=== PATIENT | female | born 1940 | race Caucasian/White ===

== ENCOUNTER → 2016-05-30 | Outpatient (REF) | payer MEDICARE, OTHER ==
[2016-05-30 11:38] LABS: MEAN CORPUSCULAR HEMOGLOBIN 31.7 pg (27.0-33.0); MEAN CORPUSCULAR HGB CONC 33.3 g/dl (32.0-36.5); MEAN CORPUSCULAR VOLUME 95.1 fl (80.0-96.0); RED CELL DISTRIBUTION WIDTH 12.6 % (11.5-14.5); WHITE BLOOD COUNT 6.7 K/mm3 (4.0-10.0)
[2016-05-30 11:51] LABS: ALBUMIN 3.4 GM/DL (3.2-5.2); ALBUMIN/GLOBULIN RATIO 1.03 (1.00-1.93); ALKALINE PHOSPHATASE 77 U/L (45-117); ALT/SGPT 30 U/L (12-78); ANION GAP 4 MEQ/L (8-16); AST/SGOT 26 U/L (15-37); BILIRUBIN,TOTAL 0.3 MG/DL (0.2-1.0); BLOOD UREA NITROGEN 13 MG/DL (7-18); CALCIUM LEVEL 9.3 MG/DL (8.8-10.2); CARBON DIOXIDE LEVEL 32 MEQ/L (21-32); CHLORIDE LEVEL 103 MEQ/L (98-107); CHOLESTEROL LEVEL 179 MG/DL (<200); CREATININE FOR GFR 0.89 MG/DL (0.55-1.02); GLOMERULAR FILTRATION RATE > 60.0 (>39); GLUCOSE, FASTING 95 MG/DL (83-110); POTASSIUM SERUM 4.4 MEQ/L (3.5-5.1); SODIUM LEVEL 139 MEQ/L (136-145); TOTAL PROTEIN 6.7 GM/DL (6.4-8.2); TRIGLYCERIDES LEVEL 32 MG/DL (<150)
== END ==
LOC: M LABDRWAD 11:03
PROVIDERS: ATTEND Family Medicine
DX: Z00.00 Encounter for general adult medical examination without abnormal findings (principal)

== ENCOUNTER → 2016-08-22 | Outpatient (CLI) | payer MEDICARE, OTHER | LOC: M ADAMS 09:30 | PROVIDERS: ATTEND Family Medicine | DX: E03.9 Hypothyroidism, unspecified (principal) ==

== ENCOUNTER → 2017-03-13 | Outpatient (CLI) | payer MEDICARE, OTHER | LOC: M ADAMS 11:07 | DX: J45.909 Unspecified asthma, uncomplicated (principal) | CPT/HCPCS: 71046 ==

== ENCOUNTER → 2017-04-29 | Outpatient (REF) | payer MEDICARE, OTHER ==
[2017-04-29 13:26] LABS: HEMATOCRIT 41.6 % (36.0-47.0); HEMOGLOBIN 13.6 g/dl (12.0-16.0); MEAN CORPUSCULAR HGB CONC 32.7 g/dl (32.0-36.5); MEAN CORPUSCULAR VOLUME 94.8 fl (80.0-96.0); PLATELET COUNT, AUTOMATED 291 10^3/uL (150-450); RED BLOOD COUNT 4.39 10^6/uL (4.00-5.40); RED CELL DISTRIBUTION WIDTH 13.2 % (11.5-14.5); WHITE BLOOD COUNT 6.4 10^3/uL (4.0-10.0)
[2017-04-29 14:07] LABS: TOTAL 25(OH) VITAMIN D 63.8 NG/ML (30.0-100.0)
[2017-04-29 14:09] LABS: ALBUMIN 3.8 GM/DL (3.2-5.2); ALBUMIN/GLOBULIN RATIO 1.09 (1.00-1.93); ALKALINE PHOSPHATASE 89 U/L (45-117); ALT/SGPT 28 U/L (12-78); ANION GAP 8 MEQ/L (8-16); AST/SGOT 24 U/L (7-37); BILIRUBIN,TOTAL 0.5 MG/DL (0.2-1.0); BLOOD UREA NITROGEN 15 MG/DL (7-18); CARBON DIOXIDE LEVEL 31 MEQ/L (21-32); CHLORIDE LEVEL 102 MEQ/L (98-107); CHOLESTEROL LEVEL 183 MG/DL (<200); CHOLESTEROL RISK RATIO 2.178 (<5); CREATININE FOR GFR 0.91 MG/DL (0.55-1.30); FREE T4 1.06 NG/DL (0.76-1.46); GLOMERULAR FILTRATION RATE > 60.0 (>39); GLUCOSE, FASTING 75 MG/DL (70-100); HDL CHOLESTEROL 84 MG/DL (>40); LDL CHOLESTEROL 89.4 MG/DL (<100); NON-HDL-C 99 MG/DL; POTASSIUM SERUM 4.8 MEQ/L (3.5-5.1); SODIUM LEVEL 141 MEQ/L (136-145); TOTAL PROTEIN 7.3 GM/DL (6.4-8.2); TRIGLYCERIDES LEVEL 48 MG/DL (<150)
== END ==
LOC: M LABDRWAD 12:27
DX: E03.9 Hypothyroidism, unspecified (principal); E55.9 Vitamin D deficiency, unspecified; R03.0 Elevated blood-pressure reading, without diagnosis of hypertension; Z13.220 Encounter for screening for lipoid disorders; Z13.0 Encounter for screening for diseases of the blood and blood-forming organs and certain disorders involving the immune mechanism
CPT/HCPCS: 84443

== ENCOUNTER → 2018-01-10 | Outpatient (REF) | payer MEDICARE, OTHER ==
[2018-01-10 13:48] LABS: BASO % 0.5 % (0.0-1.0); EOS # 0.1 10^3/uL (0.0-0.50); EOS % 1.8 % (0.0-3.0); HEMATOCRIT 41.7 % (36.0-47.0); HEMOGLOBIN 13.7 g/dl (12.0-15.5); IMMATURE GRANULOCYTE % 0.3 % (0-3.0); LYMPH # 1.8 10^3/uL (1.5-4.5); LYMPH % 24.3 % (24.0-44.0); MEAN CORPUSCULAR HEMOGLOBIN 31.9 pg (27.0-33.0); MEAN CORPUSCULAR HGB CONC 32.9 g/dl (32.0-36.5); MEAN CORPUSCULAR VOLUME 97.2 fl (80.0-96.0); MONO # 0.7 10^3/uL (0.0-0.8); MONO % 9.4 % (0.0-5.0); NEUTROPHILS # 4.7 10^3/uL (1.8-7.7); NEUTROPHILS % 63.7 % (36.0-66.0); PLATELET COUNT, AUTOMATED 308 10^3/uL (150-450); RED BLOOD COUNT 4.29 10^6/uL (4.00-5.40); RED CELL DISTRIBUTION WIDTH 12.8 % (11.5-14.5); WHITE BLOOD COUNT 7.4 10^3/uL (4.0-10.0)
[2018-01-10 14:38] LABS: ALBUMIN 3.5 GM/DL (3.2-5.2); ALBUMIN/GLOBULIN RATIO 0.95 (1.00-1.93); ALKALINE PHOSPHATASE 86 U/L (45-117); ALT/SGPT 39 U/L (12-78); ANION GAP 7 MEQ/L (8-16); AST/SGOT 29 U/L (7-37); BILIRUBIN,TOTAL 0.4 MG/DL (0.2-1.0); BLOOD UREA NITROGEN 17 MG/DL (7-18); CALCIUM LEVEL 9.8 MG/DL (8.8-10.2); CARBON DIOXIDE LEVEL 30 MEQ/L (21-32); CHLORIDE LEVEL 103 MEQ/L (98-107); CHOLESTEROL LEVEL 205 MG/DL (<200); CHOLESTEROL RISK RATIO 2.383 (<5); CREATININE FOR GFR 0.99 MG/DL (0.55-1.30); GLOMERULAR FILTRATION RATE 58.2 (>39); GLUCOSE, FASTING 81 MG/DL (70-100); HDL CHOLESTEROL 86 MG/DL (>40); LDL CHOLESTEROL 111 MG/DL (<100); MAGNESIUM LEVEL 2.2 MG/DL (1.8-2.4); NON-HDL-C 119 MG/DL; POTASSIUM SERUM 4.9 MEQ/L (3.5-5.1); SODIUM LEVEL 140 MEQ/L (136-145); TOTAL PROTEIN 7.2 GM/DL (6.4-8.2); TRIGLYCERIDES LEVEL 41 MG/DL (<150)
== END ==
LOC: M LABDRWAD 13:09
DX: I49.9 Cardiac arrhythmia, unspecified (principal); Z13.220 Encounter for screening for lipoid disorders
CPT/HCPCS: 83735

== ENCOUNTER → 2018-07-08 | Outpatient (REF) | payer MEDICARE, OTHER ==
[2018-07-08 20:17] LABS: BASO # 0.1 10^3/uL (0.0-0.2); BASO % 0.6 % (0.0-1.0); EOS # 0.1 10^3/uL (0.0-0.50); EOS % 1.2 % (0.0-3.0); HEMATOCRIT 44.1 % (36.0-47.0); HEMOGLOBIN 14.2 g/dl (12.0-15.5); LYMPH # 1.9 10^3/uL (1.5-4.5); LYMPH % 23.7 % (24.0-44.0); MEAN CORPUSCULAR HEMOGLOBIN 31.8 pg (27.0-33.0); MEAN CORPUSCULAR HGB CONC 32.2 g/dl (32.0-36.5); MEAN CORPUSCULAR VOLUME 98.9 fl (80.0-96.0); MONO # 0.7 10^3/uL (0.0-0.8); NEUTROPHILS # 5.4 10^3/uL (1.8-7.7); NEUTROPHILS % 66.3 % (36.0-66.0); PLATELET COUNT, AUTOMATED 311 10^3/uL (150-450); RED BLOOD COUNT 4.46 10^6/uL (4.00-5.40); WHITE BLOOD COUNT 8.1 10^3/uL (4.0-10.0)
[2018-07-08 20:21] LABS: BLOOD UREA NITROGEN 13 MG/DL (7-18); CARBON DIOXIDE LEVEL 32 MEQ/L (21-32); CHLORIDE LEVEL 101 MEQ/L (98-107); CREATININE FOR GFR 0.92 MG/DL (0.55-1.30); GLOMERULAR FILTRATION RATE > 60.0 (>39); GLUCOSE, FASTING 75 MG/DL (70-100); POTASSIUM SERUM 4.2 MEQ/L (3.5-5.1); SODIUM LEVEL 140 MEQ/L (136-145)
[2018-07-08 20:22] LABS: ALBUMIN 3.7 GM/DL (3.2-5.2); ALT/SGPT 30 U/L (12-78); BILIRUBIN,TOTAL 0.5 MG/DL (0.2-1.0); CALCIUM LEVEL 9.7 MG/DL (8.8-10.2); CHOLESTEROL LEVEL 217 MG/DL (<200); CHOLESTEROL RISK RATIO 2.614 (<5); FREE T4 0.91 NG/DL (0.76-1.46); HDL CHOLESTEROL 83 MG/DL (>40); LDL CHOLESTEROL 120 MG/DL (<100); NON-HDL-C 134 MG/DL; TOTAL PROTEIN 7.7 GM/DL (6.4-8.2); TRIGLYCERIDES LEVEL 71 MG/DL (<150)
[2018-07-08 20:23] LABS: TOTAL 25(OH) VITAMIN D 41.7 NG/ML (30.0-100.0)
== END ==
LOC: M LABDRWAD 19:21
PROVIDERS: ATTEND Family Medicine
DX: E03.9 Hypothyroidism, unspecified (principal); E55.9 Vitamin D deficiency, unspecified; J44.9 Chronic obstructive pulmonary disease, unspecified

== ENCOUNTER → 2019-01-12 | Outpatient (REF) | payer MEDICARE, OTHER ==
[2019-01-12 13:10] LABS: BASO # 0.1 10^3/uL (0.0-0.2); BASO % 0.6 % (0.0-1.0); EOS # 0.1 10^3/uL (0.0-0.5); EOS % 1.2 % (0.0-3.0); HEMATOCRIT 43.9 % (36.0-47.0); HEMOGLOBIN 14.3 g/dl (12.0-15.5); LYMPH # 1.7 10^3/uL (1.5-5.0); LYMPH % 16.7 % (24.0-44.0); MEAN CORPUSCULAR HEMOGLOBIN 31.6 pg (27.0-33.0); MEAN CORPUSCULAR HGB CONC 32.6 g/dl (32.0-36.5); MEAN CORPUSCULAR VOLUME 97.1 fl (80.0-96.0); MONO # 0.9 10^3/uL (0.0-0.8); MONO % 8.8 % (0.0-5.0); NEUTROPHILS # 7.5 10^3/uL (1.5-8.5); NEUTROPHILS % 72.3 % (36.0-66.0); PLATELET COUNT, AUTOMATED 312 10^3/uL (150-450); RED BLOOD COUNT 4.52 10^6/uL (4.00-5.40); WHITE BLOOD COUNT 10.4 10^3/uL (4.0-10.0)
[2019-01-12 13:43] LABS: ALBUMIN 3.8 GM/DL (3.2-5.2); ALT/SGPT 33 U/L (12-78); BILIRUBIN,TOTAL 0.3 MG/DL (0.2-1.0); BLOOD UREA NITROGEN 15 MG/DL (7-18); CALCIUM LEVEL 10.3 MG/DL (8.8-10.2); CARBON DIOXIDE LEVEL 30 MEQ/L (21-32); CHLORIDE LEVEL 103 MEQ/L (98-107); CHOLESTEROL LEVEL 224 MG/DL (<200); CHOLESTEROL RISK RATIO 2.174 (<5); FREE T4 0.99 NG/DL (0.76-1.46); GLOMERULAR FILTRATION RATE > 60.0 (>39); GLUCOSE, FASTING 80 MG/DL (70-100); HDL CHOLESTEROL 103 MG/DL (>40); LDL CHOLESTEROL 112 MG/DL (<100); NON-HDL-C 121 MG/DL; SODIUM LEVEL 140 MEQ/L (136-145); TOTAL PROTEIN 7.5 GM/DL (6.4-8.2); TRIGLYCERIDES LEVEL 43 MG/DL (<150)
== END ==
LOC: M LABDRWAD 12:54
PROVIDERS: ATTEND Physician Assistant
DX: E03.9 Hypothyroidism, unspecified (principal); E55.9 Vitamin D deficiency, unspecified

== ENCOUNTER → 2020-01-13 | Outpatient (REF) | payer MEDICARE, OTHER ==
[2020-01-13 17:10] LABS: BASO % 0.4 % (0.0-1.0); EOS # 0.1 10^3/uL (0.0-0.5); EOS % 1.4 % (0.0-3.0); HEMATOCRIT 43.5 % (36.0-47.0); HEMOGLOBIN 14.1 g/dl (12.0-15.5); LYMPH # 1.9 10^3/uL (1.5-5.0); LYMPH % 19.7 % (24.0-44.0); MEAN CORPUSCULAR HEMOGLOBIN 31.5 pg (27.0-33.0); MEAN CORPUSCULAR HGB CONC 32.4 g/dl (32.0-36.5); MEAN CORPUSCULAR VOLUME 97.1 fl (80.0-96.0); NEUTROPHILS # 6.7 10^3/uL (1.5-8.5); NEUTROPHILS % 68.3 % (36.0-66.0); PLATELET COUNT, AUTOMATED 277 10^3/uL (150-450); RED BLOOD COUNT 4.48 10^6/uL (4.00-5.40); WHITE BLOOD COUNT 9.8 10^3/uL (4.0-10.0)
[2020-01-13 17:35] LABS: ALBUMIN 3.7 GM/DL (3.2-5.2); ALT/SGPT 26 U/L (12-78); BILIRUBIN,TOTAL 0.4 MG/DL (0.2-1.0); BLOOD UREA NITROGEN 17 MG/DL (7-18); CALCIUM LEVEL 10.1 MG/DL (8.8-10.2); CARBON DIOXIDE LEVEL 32 MEQ/L (21-32); CHLORIDE LEVEL 103 MEQ/L (98-107); CHOLESTEROL LEVEL 219 MG/DL (<200); CHOLESTEROL RISK RATIO 2.433 (<5); FREE T4 1.18 NG/DL (0.76-1.46); GLOMERULAR FILTRATION RATE > 60.0 (>39); GLUCOSE, FASTING 82 MG/DL (70-100); HDL CHOLESTEROL 90 MG/DL (>40); LDL CHOLESTEROL 116 MG/DL (<100); NON-HDL-C 129 MG/DL; POTASSIUM SERUM 4.7 MEQ/L (3.5-5.1); SODIUM LEVEL 137 MEQ/L (136-145); TOTAL PROTEIN 7.1 GM/DL (6.4-8.2); TRIGLYCERIDES LEVEL 67 MG/DL (<150)
[2020-01-13 17:38] LABS: TOTAL 25(OH) VITAMIN D 43.1 NG/ML (30.0-100.0)
== END ==
LOC: M LABDRWAD 16:29
PROVIDERS: ATTEND Family Medicine
DX: E03.9 Hypothyroidism, unspecified (principal); E55.9 Vitamin D deficiency, unspecified; J44.9 Chronic obstructive pulmonary disease, unspecified; B02.23 Postherpetic polyneuropathy

== ENCOUNTER → 2020-07-27 | Outpatient (REF) | payer MEDICARE, OTHER ==
[2020-07-27 13:36] LABS: BASO # 0.1 10^3/uL (0.0-0.2); BASO % 0.6 % (0.0-1.0); EOS # 0.1 10^3/uL (0.0-0.5); EOS % 1.6 % (0.0-3.0); HEMATOCRIT 43.3 % (36.0-47.0); LYMPH % 23.9 % (24.0-44.0); MEAN CORPUSCULAR HEMOGLOBIN 31.9 pg (27.0-33.0); MEAN CORPUSCULAR HGB CONC 32.3 g/dl (32.0-36.5); MEAN CORPUSCULAR VOLUME 98.6 fl (80.0-96.0); MONO # 0.7 10^3/uL (0.0-0.8); MONO % 8.5 % (2.0-8.0); NEUTROPHILS # 5.4 10^3/uL (1.5-8.5); NEUTROPHILS % 65.2 % (36.0-66.0); PLATELET COUNT, AUTOMATED 271 10^3/uL (150-450); RED BLOOD COUNT 4.39 10^6/uL (4.00-5.40); WHITE BLOOD COUNT 8.3 10^3/uL (4.0-10.0)
[2020-07-27 14:15] LABS: BLOOD UREA NITROGEN 12 MG/DL (7-18); CARBON DIOXIDE LEVEL 30 MEQ/L (21-32); CHLORIDE LEVEL 104 MEQ/L (98-107); CREATININE FOR GFR 0.78 MG/DL (0.55-1.30); GLOMERULAR FILTRATION RATE > 60.0 (>39); GLUCOSE, FASTING 78 MG/DL (70-100); POTASSIUM SERUM 4.7 MEQ/L (3.5-5.1); SODIUM LEVEL 138 MEQ/L (136-145)
[2020-07-27 14:16] LABS: ALBUMIN 3.7 GM/DL (3.2-5.2); ALT/SGPT 30 U/L (12-78); BILIRUBIN,TOTAL 0.4 MG/DL (0.2-1.0); CHOLESTEROL LEVEL 214 MG/DL (<200); CHOLESTEROL RISK RATIO 2.326 (<5); FREE T4 1.06 NG/DL (0.76-1.46); HDL CHOLESTEROL 92 MG/DL (>40); LDL CHOLESTEROL 112 MG/DL (<100); NON-HDL-C 122 MG/DL; TOTAL 25(OH) VITAMIN D 50.7 NG/ML (30.0-100.0); TOTAL PROTEIN 7.1 GM/DL (6.4-8.2); TRIGLYCERIDES LEVEL 48 MG/DL (<150)
== END ==
LOC: M LABDRWAD 12:27
PROVIDERS: ATTEND Family Medicine
DX: J44.9 Chronic obstructive pulmonary disease, unspecified (principal); E03.9 Hypothyroidism, unspecified; E55.9 Vitamin D deficiency, unspecified

== ENCOUNTER → 2020-08-30 | Outpatient (CLI) | payer MEDICARE, OTHER ==
--- NOTE | 2020-08-30 14:53 | REPMRS ---
Patient History The patient states she has not had a clinical breast exam in over a year. Patient is postmenopausal. Family history of breast cancer under age 50 in mother. Took hormonal contraceptives for 10 years. Patient states no breast complaints today. Patient has signed MRS History Sheet. Digital Woman Screen Mammo: August 30, 2020 - Exam #: [id number] Bilateral CC and MLO view(s) were taken. Technologist: Bethany Strong, Technologist Prior study comparison: June 06, 2018, bilateral digital mammo screening bilat, performed at [facility]. June 05, 2017, bilateral digital mammo screening bilat, performed at [facility]. June 04, 2016, bilateral digital mammo screening bilat, performed at [facility]. FINDINGS: The breast tissue is extremely dense which could obscure a lesion on mammography. The Volpara volumetric breast density category is: D. There is an extremely dense symmetrical pattern of residual fibroglandular tissue. There has been no change in the appearance of the mammogram from the previous studies. There is no interval development of dominant mass, archetectural distortion, or grouped microcalcifications suggestive of malignancy. 3-D tomosynthesis shows no additional findings. Assessment: BI-RADS/ACR category 1 mammogram. Negative Mammogram. Recommendation Routine screening mammogram of both breasts in 1 year (for women over age 40). This patient's [facility] Lifetime Breast Cancer RIsk is estimated at 5.1 %. This mammogram was interpreted with the aid of an FDA-approved computer-aided dectection system. Electronically Signed By: Mustapha Cruz MD 08/30/20 [id number]
--- NOTE | 2020-08-30 15:33 | DEXAMM ---
INDICATION: Z13.820 SCREENING FOR OSTEOPOROSIS. COMPARISON: None. TECHNIQUE: Bone density was measured using dual-energy x-ray absorptiometry (DEXA). FINDINGS: AP SPINE L1-L4 BMD 1.231 g/cm2 Young Adult T-Score 0.3 Age Matched Z-Score 2.1. LT FEMUR, TOTAL BMD 0.783 g/cm2 Young Adult T-Score -1.8 Age Matched Z-Score 0.1. LT NECK BMD 0.728 g/cm2 Young Adult T-Score -2.2 Age Matched Z-Score -0.2. RT FEMUR, TOTAL BMD 0.762 g/cm2 Young Adult T-Score -2.0 Age Matched Z-Score 0.0. RT NECK BMD 0.707 g/cm2 Young Adult T-Score -2.4 Age Matched Z-Score -0.3. IMPRESSION: There is normal bone density of the spine. There is low bone density of the left hip. There is low bone density of the right hip. FOLLOW-UP: Recommendation for the next bone density exam: 2 years. <Electronically signed by Ronal Allen > 08/30/20 [id number]
== END ==
LOC: M WHC 13:21
PROVIDERS: ATTEND Physician Assistant
DX: Z12.31 Encounter for screening mammogram for malignant neoplasm of breast (principal); Z13.820 Encounter for screening for osteoporosis; M81.0 Age-related osteoporosis without current pathological fracture

== ENCOUNTER → 2021-01-10 | Outpatient (REF) | payer MEDICARE, OTHER ==
[~2021-01-10] MED LIST: BREO1INH PO; BREO1INH3 PO; CLAR10CA3 PO; LEVO25TA5 PO; MONT10TA97 PO; PSEU30TA21 PO
== END ==
LOC: M LAB REF 21:08
PROVIDERS: ATTEND Physician Assistant
DX: J06.9 Acute upper respiratory infection, unspecified (principal)

== ENCOUNTER 2021-01-12 18:59 | Emergency (ER) | payer MEDICARE, OTHER ==
[~2021-01-12] VITALS: Ht 147.3 cm; Wt 53.5 kg
[2021-01-12 19:02] VITALS: BP 156/75
--- OUTSIDE RECORDS SUMMARY | 2021-01-12 19:08 | CCD | Continuity of Care Document ---
Author Author Tracy OSBORN PA Organization [place] [address] Phone [phone] Care Team Providers Care Electromechanical Inspector Name Role Phone Ann Gallo D.O. AUTM Problems Active Problems Provider Date Chronic obstructive lung disease Ann Gallo D.O. Onset: 07/04/2017 Hypothyroidism Ann Gallo D.O. Onset: 2017 Vitamin D deficiency Ann Gallo D.O. Onset: 07/04 Post-herpetic polyneuropathy Ann Gallo D.O. Onse t: 07/04/2017 Mixed hyperlipidemia MARLEEN Dumas Onset: 01/12/2018 Social History Type Date Description Comments Sex Unknown Tobacco Use Start: Unknown End: Quit Smo ked for 18 years averaging 1 PPD Smoking Status Reviewed: 01/15/20 Quit Smoked for 18 years averaging 1 PPD ETOH Use Denies alcohol use Tobacco Use Start: Unknown End: Unknown Patient is a former smoker Recreational Drug Use Denies Drug Use Exercise Type/Frequency Does not exercise Sun Exposure Does not use sunscreen Seat Belt/Car Seat Always uses seat belt Allergies and adverse reactions Description No Known Drug Allergies Medications Active Medications SIG Qnty Indications Ordering Provide r Date Albuterol Sulfate HFA 108(90Base) mcg/Act Aerosol 1-2 puffs every 4-6 hours as needed for shortness of breath 17gm J44.9 Ann Gallo D.O. 01/10/2021 Amoxicillin/Clavulanate Potassium 875-125mg Tablets one tablet by mouth every 12 hours 20tabs J06.9 Seymour Stratton.O. 01/10/2021 Fish Oil 500mg Capsules 1 by mouth twice a day 180caps Gabriel StrattonO. 07/26 Flonase Allergy Relief 50mcg/Act Suspension two sprays in each nostril once daily 18.200ml Seymour Velazco.O. 07/26/2020 Montelukast Sodium 10mg Tablets take one tablet by mouth every day as directed 90tabs Seymour Alberto.O. 12/02/2017 Breo Ellipta 100-25mcg/Inh Aerosol Inhale One puff By Mouth Every Day 180units J44.9 Seymour Stratton.O. 04/16/2017 Pseudoephedrine HCL 30mg Tablets one tablet every day Unknown Loratadine 10mg Tablets 1 tab by mouth every morning Unknown Vitamin C 500mg Tablets 1 by mouth every day Unknown Calcium + D3 [id number] Tablet s 1 by mouth every day Unknown Multivitamin Adult Tablets 1 by mouth every day Unknown Vitamin D3 2000Unit Capsules 1 by mouth every day Unknown Levothyroxine Sodium 25mcg Tablets take one tablet by mouth every day as directed 90tabs Seymour Scott.O. Saline Nasal [place] 0.65% Solution 1 spray each nostril twice a day Unknown 000 Immunizations Description No Information Available Vital Signs Date Vital Result Comment 01/10/2021 4:10pm BP Systolic 126 mmHg BP Diastolic 78 mmHg Height 58.0 inches 4'10" Heart Rate 50 /min Respiratory Rate 20 /min Body Temperature 97.9 F O2 % BldC Oximetry 91 % Hill Body Weight 100 lb 07/26/2020 11:07am BP Systolic 142 mmHg BP Diastolic 80 mmHg Height 58.0 inches 4'10" Weight 120.00 lb BMI (Body Mass Index) 25.1 kg/m2 Heart Rate 75 /min Respiratory Rate 18 /min Body Temperature 97.3 F O2 % BldC Oximetry 96 % Hill Body Weight 100 lb Results Test Acquired Date Facility Test Result H/L Range Note Respiratory Panel 01/10/2021 [facility] [address] [place] [address] [phone] Respiratory Panel This respiratory <SEE NOTE> 1 CBC With Differential 07/27/[address] [address] [phone] White Blood Count 8.3 10 Normal 4.0-10.0 Red Blood Count 4.39 10 Normal 4.00-5.40 Hemoglobin 14.0 g/dL Normal 12.0-15.5 Hematocrit 43.3 % Normal 36.0-47.0 Mean Corpuscular Volume 98.6 fl High 80.0-96.0 Mean Corpuscular Hemoglobin 31.9 pg Normal 27.0-33.0 Mean Corpuscular HGB Conc 32.3 g/dL Normal 32.0-36.5 Red Cell Distribution Width 12.8 % Normal 11.5-14.5 Platelet Count, Automated 271 10 Normal 150-450 Neutrophils % 65.2 % Normal 36.0-66.0 Lymph % 23.9 % Low 24.0-44.0 Braxton % 8.5 % High 2.0-8.0 Eos % 1.6 % Normal 0.0-3.0 Baso % 0.6 % Normal 0.0-1.0 Immature Granulocyte % 0.2 % Normal 0-3.0 Nucleated Red Blood Cell % 0.0 % Normal 0-0 Neutrophils # 5.4 10 Normal 1.5-8.5 Lymph # 2.0 10 Normal 1.5-5.0 Braxton # 0.7 10 Normal 0.0-0.8 Eos # 0.1 10 Normal 0.0-0.5 Baso # 0.1 10 Normal 0.0-0.2 FT4&TSH Panel 07/27/2020 [facility] [address] [place] [address] [phone] Thyroid Stimulating Hormone 2.300 uIU/ML Normal 0. 358-3.740 Free T4 1.06 ng/dL Normal 0.76-1.46 Laboratory test finding 07/27/[address] [address] [phone] Total 25(Oh) Vitamin D 50.7 NG/ML Normal 30.0-100. 0 Comprehensive Metabolic Profil 07/27/[address] [address] [phone] Glucose, Fasting 78 mg/dL Normal 70-100 Blood Urea Nitrogen 12 mg/dL Normal 7-18 Creatinine For GFR 0.78 mg/dL Normal 0.55-1.30 Glomerular Filtration Rate > 60.0 Normal >39 2 Sodium Level 138 mEq/L Normal 136-145 Potassium Serum 4.7 mEq/L Normal 3.5-5.1 Chloride Level 104 mEq/L Normal 98-107 Carbon Dioxide Level 30 mEq/L Normal 21-32 Anion Gap 4 mEq/L Low 8-16 Calcium Level 10.0 mg/dL Normal 8.8-10.2 Ast/Sgot 24 U/L Normal 7-37 Alt/SGPT 30 U/L Normal 12-78 Alkaline Phosphatase 67 U/L Normal 45-117 Bilirubin,Total 0.4 mg/dL Normal 0.2-1.0 Total Protein 7.1 GM/DL Normal 6.4-8.2 Albumin 3.7 GM/DL Normal 3.2-5.2 Albumin/Globulin Ratio 1.1 Low 1.2-2.2 Lipid Panel 07/27/2020 [facility] [address] [place] [address] [phone] Triglycerides Level 48 mg/dL Normal <150 Cholesterol Level 214 mg/dL High <200 HDL Cholesterol 92 mg/dL Normal >40 LDL Cholesterol 112 mg/dL High <100 Non-HDL-C 122 mg/dL Normal Cholesterol Risk Ratio 2.326 Normal <5 1 This respiratory PCR panel d etects Influenza A H1, H3 and 2009 H1 viruses, Influenza B virus, Resp iratory Syncytial Virus, Human metapneumovirus, Parainfluenza virus 1, 2, 3 and 4, Adenovirus, Rhinovirus/Enterovirus, Coronavirus HKU1, NL63, OC43, 229E and SARS-CoV-2 (COVID 19), Bordetella pertussis, Bordetella parapertussis, Mycoplasma pneumoniae and Chlamydia pneumoniae. POSITIVE by MULTIPLEXED NUCLEIC ACID PCR SARS-CoV-2 (COVID 19) NEGATIVE - SARS-CoV-2 (COVID19) ORGANISM 1: HUMAN RHINOVIRUS/ENTEROVIRUS Rhinovirus is noted as causing the "common cold", but may also be involved in precipitating asthma attacks and severe complications. Enteroviruses can be associated with different clinical manifestations, including non-specific respiratory illness. These viruses are closely related and therefore not able to be reliably differentiated. ORGANISM 1: HUMAN RHINOVIRUS/ENTEROVIRUS 2 Units are mL/min/1.73 m2 Chronic Kidney Disease Staging per NKF: Stage I & II GFR >=60 Normal to Mildly Decreased Stage III GFR 30-59 Moderately Decreased Stage IV GFR 15-29 Severely Decreased Stage V GFR <15 Very Little GFR Left ESRD GFR <15 on COMBER OPERATOR Procedures Date Code Description Status 01/10/2021 74262 Office/Outpatient Established Lo w MDM 20-29 Min Completed 08/30/2020 [id number] Mammogram Completed 07/26/2020 78248 Office/Outpatient Established Mo d MDM 30-39 Min Completed Medical Devices Description No Information Available Encounters Type Date Location Provider Dx Diagnosis Office Visit 01/10/2021 4:00p Family [facility] MARLEEN Patten J06.9 Acute upper respiratory infe ction, unspecified J44.9 Chronic obstructive pulmonar y disease, unspecified Office Visit 07/26/2020 11:00a [facility] MARLEEN Patten J44.9 Chronic obstructive pulmonar y disease, unspecified E03.9 Hypothyroidism, unspecified E55.9 Vitamin D deficiency, unspec ified J30.2 Other seasonal allergic rhin itis Z12.31 Encntr screen mammogram for malignant neoplasm of breast Z13.820 Encounter for screening for osteoporosis Assessments Date Code Description Provider 01/10/2021 J06.9 Acute upper respiratory infectio n, unspecified MARLEEN Patten 01/10/2021 J44.9 Chronic obstructive pulmonary di sease, unspecified MARLEEN Patten 07/26/2020 J44.9 Chronic obstructive pulmonary di sease, unspecified MARLEEN Patten 07/26/2020 E03.9 Hypothyroidism, unspecified MARLEEN Medley 07/26/2020 E55.9 Vitamin D deficiency, unspecifie d MARLEEN Patten 07/26/2020 J30.2 Other seasonal allergic rhinitis MARLEEN Patten 07/26/2020 Z12.31 Encounter for screen ing mammogram for malignant neoplasm of breast MARLEEN Patten 07/26/2020 Z13.820 Encounter for screening for oste oporosis MARLEEN Patten Plan of Treatment Future Appointment(s):* 02/21/2021 10:00 am - MARLEEN Patten at [facility] Functional Status Description No Information Available Mental Status Description No Information Available Referrals Description No Information Available
--- OUTSIDE RECORDS SUMMARY | 2021-01-12 19:08 | CCD ---
Author Author [facility] Organization [facility] Address Unknown Phone Unavailable Care Team Providers Care Farm Manager Name Role Phone SARAH-RUTH, JOSEPH DO Unavailable Unavailable SARAH-RUTH, JOSEPH DO Unavailable Unavailable SARAH-RUTH, JOSEPH DO Unavailable Unavailable SARAH-RUTH, JOSEPH DO Unavailable Unavailable SARAH-RUTH, JOSEPH DO Unavailable Unavailable SARAH-RUTH, JOSEPH DO Unavailable Unavailable SARAH-RUTH, JOSEPH DO Unavailable Unavailable SARAH-RUTH, JOSEPH DO Unavailable Unavailable SARAH-RUTH, JOSEPH DO Unavailable Unavailable SARAH-RUTH, JOSEPH DO Unavailable Unavailable SARAH-RUTH, JOSEPH DO Unavailable Unavailable SARAH-RUTH, JOSEPH DO Unavailable Unavailable SARAH-RUTH, JOSEPH DO Unavailable Unavailable SARAH-RUTH, JOSEPH DO Unavailable Unavailable SARAH-RUTH, JOSEPH DO Unavailable Unavailable SARAH-RUTH, JOSEPH DO Unavailable Unavailable SARAH-RUTH, JOSEPH DO Unavailable Unavailable SARAH-RUTH, JOSEPH DO Unavailable Unavailable SARAH-RUTH, JOSEPH DO Unavailable Unavailable SARAH-RUTH, JOSEPH DO Unavailable Unavailable SARAH-RUTH, JOSEPH DO Unavailable Unavailable SARAH-RUTH, JOSEPH DO Unavailable Unavailable SARAH-RUTH, JOSEPH DO Unavailable Unavailable SARAH-RUTH, JOSEPH DO Unavailable Unavailable SARAH-RUTH, JOSEPH DO Unavailable Unavailable SARAH-RUTH, JOSEPH DO Unavailable Unavailable SARAH-RUTH, JOSEPH DO Unavailable Unavailable SARAH-RUTH, JOSEPH DO Unavailable Unavailable SARAH-RUTH, JOSEPH DO Unavailable Unavailable SARAH-RUTH, JOSEPH DO Unavailable Unavailable SARAH-RUTH, JOSEPH DO Unavailable Unavailable SARAH-RUTH, JOSEPH DO Unavailable Unavailable SARAH-RUTH, JOSEPH DO Unavailable Unavailable SARAH-RUTH, JOSEPH DO Unavailable Unavailable SARAH-RUTH, JOSEPH DO Unavailable Unavailable SARAH-RUTH, JOSEPH DO Unavailable Unavailable SARAH-RUTH, JOSEPH DO Unavailable Unavailable SARAH-RUTH, JOSEPH DO Unavailable Unavailable SARAH-RUTH, JOSEPH DO Unavailable Unavailable SARAH-RUTH, JOSEPH DO Unavailable Unavailable SARAH-RUTH, JOSEPH DO Unavailable Unavailable SARAH-RUTH, JOSEPH DO Unavailable Unavailable SARAH-RUTH, JOSEPH DO Unavailable Unavailable SARAH-RUTH, JOSEPH DO Unavailable Unavailable SARAH-RUTH, JOSEPH DO Unavailable Unavailable SARAH-RUTH, JOSEPH DO Unavailable Unavailable SARAH-RUTH, JOSEPH DO Unavailable Unavailable SARAH-RUTH, JOSEPH DO Unavailable Unavailable SARAH-RUTH, JOSEPH DO Unavailable Unavailable SARAH-RUTH, JOSEPH DO Unavailable Unavailable SARAH-RUTH, JOSEPH DO Unavailable Unavailable SARAH-RUTH, JOSEPH DO Unavailable Unavailable SARAH-RUTH, JOSEPH DO Unavailable Unavailable SARAH-RUTH, JOSEPH DO Unavailable Unavailable SARAH-RUTH, JOSEPH DO Unavailable Unavailable SARAH-RUTH, JOSEPH DO Unavailable Unavailable SARAH-RUTH, JOSEPH DO Unavailable Unavailable SARAH-RUTH, JOSEPH DO Unavailable Unavailable SARAH-RUTH, JOSEPH DO Unavailable Unavailable SARAH-RUTH, JOSEPH DO Unavailable Unavailable SARAH-RUTH, JOSEPH DO Unavailable Unavailable SARAH-RUTH, JOSEPH DO Unavailable Unavailable SARAH-RUTH, JOSEPH DO Unavailable Unavailable SARAH-RUTH, JOSEPH DO Unavailable Unavailable SARAH-RUTH, JOSEPH DO Unavailable Unavailable SARAH-RUTH, JOSEPH DO Unavailable Unavailable SARAH-RUTH, JOSEPH DO Unavailable Unavailable SARAH-RUTH, JOSEPH DO Unavailable Unavailable SARAH-RUTH, JOSEPH DO Unavailable Unavailable SARAH-RUTH, JOSEPH DO Unavailable Unavailable SARAH-RUTH, JOSEPH DO Unavailable Unavailable SARAH-RUTH, JOSEPH DO Unavailable Unavailable SARAH-RUTH, JOSEPH DO Unavailable Unavailable SARAH-RUTH, JOSEPH DO Unavailable Unavailable SARAH-RUTH, JOSEPH DO Unavailable Unavailable SARAH-RUTH, JOSEPH DO Unavailable Unavailable SARAH-RUTH, JOSEPH DO Unavailable Unavailable SARAH-RUTH, JOSEPH DO Unavailable Unavailable SARAH-RUTH, JOSEPH DO Unavailable Unavailable SARAH-RUTH, JOSEPH DO Unavailable Unavailable SARAH-RUTH, JOSEPH DO Unavailable Unavailable SARAH-RUTH, JOSEPH DO Unavailable Unavailable SARAH-RUTH, JOSEPH DO Unavailable Unavailable SARAH-RUTH, JOSEPH DO Unavailable Unavailable SARAH-RUTH, JOSEPH DO Unavailable Unavailable O'ashly, A Mick PA Unavailable Unavailable O'ashly, A Mikc PA Unavailable Unavailable O'ashly, A Mick PA Unavailable Unavailable O'ashly, A Mick PA Unavailable Unavailable O'ashly, A Mick PA Unavailable Unavailable O'ashly, A Mick PA Unavailable Unavailable O'ashly, A Mick PA Unavailable Unavailable O'ashly, A Mick PA Unavailable Unavailable O'ashly, A Mick PA Unavailable Unavailable O'ashly, A Mick PA Unavailable Unavailable O'ashly, A Mick PA Unavailable Unavailable O'ashly, A Mick PA Unavailable Unavailable O'ashly, A Mick PA Unavailable Unavailable O'ashly, A Mick PA Unavailable Unavailable O'ashly, A Mick PA Unavailable Unavailable O'ashly, A Mick PA Unavailable Unavailable O'ashly, A Mick PA Unavailable Unavailable O'ashly, A Mick PA Unavailable Unavailable O'ashly, A Mick PA Unavailable Unavailable O'ashly, A Mick PA Unavailable Unavailable O'ashly, A Mick PA Unavailable Unavailable O'ashly, A Mick PA Unavailable Unavailable O'ashly, A Mick PA Unavailable Unavailable O'ashly, A Mick PA Unavailable Unavailable O'ashly, A Mick PA Unavailable Unavailable O'ashly, A Mick PA Unavailable Unavailable O'ashly, A Mick PA Unavailable Unavailable O'ashly, A Mick PA Unavailable Unavailable O'ashly, A Mick PA Unavailable Unavailable O'ashly, A Mick PA Unavailable Unavailable O'ashly, A Mick PA Unavailable Unavailable O'ashly, A Mick PA Unavailable Unavailable O'ashly, A Mick PA Unavailable Unavailable Re-disclosure Warning The records that you are about to access may contain information from federally-assisted alcohol or drug abuse programs. If such information is present, then the following federally mandated warning applies: This information has been disclosed to you from records protected by federal confidentiality rules (42 CFR part 2). The federal rules prohibit you from making any further disclosure of this information unless further disclosure is expressly permitted by the written consent of the person to whom it pertains or as otherwise permitted by 42 CFR part 2. A general authorization for the release of medical or other information is NOT sufficient for this purpose. The Federal rules restrict any use of the information to criminally investigate or prosecute any alcohol or drug abuse patient.The records that you are about to access may contain highly sensitive health information, the redisclosure of which is protected by Article 27-F of the [facility] Public Health law. If you continue you may have access to information: Regarding HIV / AIDS; Provided by facilities licensed or operated by the [facility] Office of Mental Health; or Provided by the [facility] Office for People With Developmental Disabilities. If such information is present, then the following [facility] mandated warning applies: This information has been disclosed to you from confidential records which are protected by state law. State law prohibits you from making any further disclosure of this information without the specific written consent of the person to whom it pertains, or as otherwise permitted by law. Any unauthorized further disclosure in violation of state law may result in a fine or [place] health care facility sentence or both. A general authorization for the release of medical or other information is NOT sufficient authorization for further disc losure. Family History Family Member Name Family Member Gender Family Member Status Date o f Status Description Data Source(s) Unknown Male Problem [facility] ([facility]) () Unknown Unknown Problem [facility]) Encounters Encounter Providers Location Date Indications Data Source(s ) Outpatient Attender: Mick HAWLEY [facility] 01/10/2021 03:00:00 PM EST [facility] ([facility]) Outpatient Attender: Mick HAWLEY [facility] 07/26/2020 11:00:00 AM EDT [facility] ([facility]) Office Visit Attender: JOSEPH BLANKENSHIP DO [facility] 01/15/2020 08:20:00 AM EST [facility] ([facility]) Immunizations Vaccine Date Status Description Data Source(s) COVID-19 VACCINE Moderna 05/24/2020 12:00:00 AM EDT completed [facility] Vaccine Series Complete: YESThis Data wa s Submitted to [facility] [employer]. COVID-19 VACCINE Moderna 04/26/2020 12:00:00 AM EDT completed [facility] Vaccine Series Complete: NOThis Data was Submitted to [facility] [employer]. Medications Medication Brand Name Start Date Product Form Dose Route Admi nistrative Instructions Pharmacy Instructions Status Indications Reaction Description Data Source(s) 60 ACTUAT Albuterol 0.09 MG/ACTUAT Metered Dose Inhaler Albu terol Sulfate HFA 01/10/2021 12:00:00 AM EST RESPIRATORY active [facility] ([facility]) Amoxicillin 875 MG / Clavulanate 125 MG Oral Tablet Am oxicillin/Clavulanate Potassium 01/10/2021 12:00:00 AM EST ORAL active [facility] ([facility]) 25 mcg 12/12/2020 12:00:00 AM EDT tablet 90 TAKE ONE TABLET BY MOUTH EVERY DAY DIRECTED TAKE ONE TABLET BY MOUTH EVERY DAY DIRECTED SOLD: 021 [facility] 30 ACTUAT fluticasone furoate 0.1 MG/ACT UAT / vilanterol 0.025 MG/ACTUAT Dry Powder Inhaler [Breo] 100-25 mcg/dose FLUTICASONE/VILANTEROL 11/04/2020 12:00 :00 AM EDT blister with device 180 INHALE ONE PUFF BY MO UTH EVERY DAY INHALE ONE PUFF BY MOUTH EVERY DAY SOLD: 11/07/2020 [facility] montelukast 10 MG Oral Tablet MONTELUKAST SODIUM 10/19/2020 12:0 0:00 AM EDT tablet 90 TAKE ONE TABLET BY MOUTH EVERY D AY DIRECTED TAKE ONE TABLET BY MOUTH EVERY DAY DIRECTED SOLD: 10/20/2020 [facility] 50 mcg/actuation 07/27/2020 12:00:00 AM EDT spray,suspension 16 SPRAY 2 SPRAYS IN EACH NOSTRIL ONCE DAILY SPRAY 2 SPRAYS IN EACH NOSTRIL ONCE DAILY SOLD: 07/28/2020 [facility] 50 mcg/actuation 07/27/2020 12:00:00 AM EDT spray,suspension 16 SPRAY 2 SPRAYS IN EACH NOSTRIL ONCE DAILY SPRAY 2 SPRAYS IN EACH NOSTRIL ONCE DAILY SOLD: 01/03/2021 [facility] Fish Oil 07/26/2020 12:00:00 AM EDT ORAL active [facility] ([facility]) Flonase Allergy Relief Flonase Allergy Relief 07/26/2020 12:00:00 AM E DT active [facility] ([facility]) 25 mcg 06/06/2020 12:00:00 AM EDT tablet 90 TAKE ONE TABLET BY MOUTH EVERY DAY DIRECTED TAKE ONE TABLET BY MOUTH EVERY DAY DIRECTED SOLD: [facility] 30 ACTUAT fluticasone furoate 0.1 MG/ACT UAT / vilanterol 0.025 MG/ACTUAT Dry Powder Inhaler [Breo] 100-25 mcg/dose FLUTICASONE/VILANTEROL 05/04/2020 12:00 :00 AM EDT blister with device 180 INHALE ONE PUFF BY MO UTH EVERY DAY INHALE ONE PUFF BY MOUTH EVERY DAY SOLD: 08/01/2020 [facility] 100-25 mcg/dose 05/04/2020 12:00:00 AM EDT blister with henry ce 180 INHALE ONE PUFF BY MOUTH EVERY DAY INHALE ONE PUFF BY MOUTH EVERY DAY SOLD: 05/05/2020 [facility] montelukast 10 MG Oral Tablet MONTELUKAST SODIUM 04/11/2020 12:0 0:00 AM EST tablet 90 TAKE ONE TABLET BY MOUTH EVERY D AY DIRECTED TAKE ONE TABLET BY MOUTH EVERY DAY DIRECTED SOLD: 07/16/2020 [facility] montelukast 10 MG Oral Tablet MONTELUKAST SODIUM 04/11/2020 12:0 0:00 AM EST tablet 90 TAKE ONE TABLET BY MOUTH EVERY D AY DIRECTED TAKE ONE TABLET BY MOUTH EVERY DAY DIRECTED SOLD: 04/13/2020 [facility] Insurance Providers Payer name Policy type / Coverage type Policy ID Covered constitution party ID Covered constitution party's relationship to bell Policy Bell Plan Information MEDICARE [id number] SP [id number] [facility] [id number] 82 [id number] Medicare [place] Primary [id number] Self [id number] Medicare [place] Primary [id number] Self [id number] MVP Commercial [id number] Self [id number] MEDICARE [id number] SP [id number] A Medicare [place] Primary [id number] Self [id number] Medicare [place] Medicare Primary [id number] Self [id number] P Commercial [id number] Self [id number] Medicare [place] Medicare Primary [id number] Self 08 [id number] [facility] O [id number] S [id number] MEDICARE [id number] S [id number] A P Commercial [id number] Self [id number] Medicare [place] Medicare Primary [id number] Self [id number] MVP Commercial [id number] Self Medicare Natl Gov't Servi Medicare Primary [id number] Self p [employer] .[id number] [facility] Insurance [facility] Medicare Part B [id number] [facility] [id number] HARIS ELDENA PHY [id number] SP [id number] A [id number] Problems, Conditions, and Diagnoses No Information Surgeries/Procedures Procedure Description Date Indications Data Source(s) OFFICE OUTPATIENT VISIT 15 MINUTES 01/10/2021 12:00:00 AM EST [facility] ([facility]) Mammography (procedure) 08/30/2020 12:00:00 AM EDT [facility] ([facility]) OFFICE OUTPATIENT VISIT 25 MINUTES 07/26/2020 12:00:00 AM EDT [facility]) Results ID Date Data Source [id number] 01/10/2021 04:10:00 PM EST [facility] ([facility]) Name Value Range Interpretation Code Description Data Yumiko rce(s) Supporting Document(s) Respiratory Panel Laboratory test result [facility] ([facility]) This respiratory PCR panel detects Influ mirta A H1, H3 and 2009 H1 viruses, [...] be reliably differentiated. ORGANISM 1: HUMAN RHINOVIRUS/ENTEROVIRUS ID Date Data Source [id number] 01/10/2021 04:10:00 PM EST [facility] Name Value Range Interpretation Code Description Data Yumiko rce(s) Supporting Document(s) SARS coronavirus 2 RNA [Presence] in Res piratory specimen by BLANKA with probe detection NEGATIVE - SARS-CoV-2 (COVID19) [facility] This lab was ordered by [facility] a nd reported by [facility]. ID Date Data Source [id number] 07/27/2020 03:15:00 PM EDT [facility] ([facility]) Name Value Range Interpretation Code Description Data Yumiko rce(s) Supporting Document(s) Triglycerides Level 48 mg/dL Normal (applies to non-nume shilo results) [facility] ([facility]) HDL Cholesterol 92 mg/dL Normal (applies to non-numeric results) [facility] ([facility]) Cholesterol Level 214 mg/dL Above high normal [facility] ([facility]) Cholesterol Risk Ratio 2.326 Normal (applies to non-n umeric results) [facility] ([facility]) LDL Cholesterol 112 mg/dL Above high normal [facility] ([facility]) Non-HDL-C 122 mg/dL Normal (applies to non-numeric resul ts) [facility] ([facility]) ID Date Data Source [id number] 07/27/2020 03:15:00 PM EDT [facility] ([facility]) Name Value Range Interpretation Code Description Data Yumiko rce(s) Supporting Document(s) Glucose, Fasting 78 mg/dL 70-100 Normal (applies to non-numeric results) [facility] ([facility]) Glomerular Filtration Rate Laboratory test result Normal (applies to non- numeric results) [facility] ([facility]) <content>Units are mL/min/1.73 m2</content>
<content></content>
<content>Chronic Kidney Disease Staging per NKF:</content>
<content></content>
<content>Stage I & II GFR >=60 Normal to Mildly Decreased</content>
<content>Stage III GFR 30- 59 Moderately Decreased</content>
<content>Stage IV GFR 15-29 Severely Decreased</content>
<content>Stage V GFR <15 Very Little GFR Left</content>
<content>ESRD GFR <15 on CONVERTIBLE POWER SHOVEL OPERATOR</content>
<content></content> Blood Urea Nitrogen 12 mg/dL 7-18 Normal (applies to non-nume shilo results) [facility] ([facility]) Creatinine For GFR 0.78 mg/dL 0.55-1.30 Normal (applies to non -numeric results) [facility] ([facility]) Potassium Serum 4.7 meq/L 3.5-5.1 Normal (applies to non-numeric results) [facility] ([facility]) Sodium Level 138 meq/L 136-145 Normal (applies to non-numeric res ults) [facility] ([facility]) Chloride Level 104 meq/L 98-107 Normal (applies to non-numeric r esults) [facility] ([facility]) Carbon Dioxide Level 30 meq/L 21-32 Normal (applies to non-num abraham results) [facility] ([facility]) Calcium Level 10.0 mg/dL 8.8-10.2 Normal (applies to non-numeric re sults) [facility] ([facility]) Anion Gap 4 meq/L 8-16 Below low normal [facility] ( [facility]) Ast/Sgot 24 U/L 7-37 Normal (applies to non-numeric resul ts) [facility] ([facility]) Alt/SGPT 30 U/L 12-78 Normal (applies to non-numeric resul ts) [facility] ([facility]) Bilirubin,Total 0.4 mg/dL 0.2-1.0 Normal (applies to non-numeric results) [facility] ([facility]) Alkaline Phosphatase 67 U/L 45-117 Normal (applies to non-num abraham results) [facility] ([facility]) Total Protein 7.1 GM/DL 6.4-8.2 Normal (applies to non-numeric re sults) [facility] ([facility]) Albumin 3.7 GM/DL 3.2-5.2 Normal (applies to non-numeric resul ts) [facility] ([facility]) Albumin/Globulin Ratio 1.1 1.2-2.2 Below low normal [facility] ([facility]) ID Date Data Source [id number] 07/27/2020 03:15:00 PM EDT [facility] ([facility]) Name Value Range Interpretation Code Description Data Yumiko rce(s) Supporting Document(s) Calcidiol [Mass/volume] in Serum or Plasma 50.7 ng/mL 30.0- 100.0 Normal (applies to non-numeric results) [facility] ([facility]) ID Date Data Source [id number] 07/27/2020 03:15:00 PM EDT [facility] ([facility]) Name Value Range Interpretation Code Description Data Yumiko rce(s) Supporting Document(s) Free T4 1.06 ng/dL 0.76-1.46 Normal (applies to non-numeric resul ts) [facility] ([facility]) Thyroid Stimulating Hormone 2.300 uIU/ML 0.358-3.740 Norm al (applies to non- numeric results) [facility] ([facility]) ID Date Data Source [id number] 07/27/2020 03:15:00 PM EDT [facility] ([facility]) Name Value Range Interpretation Code Description Data Yumiko rce(s) Supporting Document(s) White Blood Count 8.3 10 4.0-10.0 Normal (applies to non-numeri c results) [facility] ([facility]) Red Blood Count 4.39 10 4.00-5.40 Normal (applies to non-numeric results) [facility] ([facility]) Hemoglobin 14.0 g/dL 12.0-15.5 Normal (applies to non-numeric resul ts) [facility] ([facility]) Hematocrit 43.3 % 36.0-47.0 Normal (applies to non-numeric resul ts) [facility] ([facility]) Mean Corpuscular Volume 98.6 fl 80.0-96.0 Above high normal [facility] ([facility]) Mean Corpuscular Hemoglobin 31.9 pg 27.0-33.0 Norm al (applies to non-numeric results) [facility] ([facility]) Red Cell Distribution Width 12.8 % 11.5-14.5 Norm al (applies to non-numeric results) [facility] ([facility]) Mean Corpuscular HGB Conc 32.3 g/dL 32.0-36.5 Normal (applies to non-numeric results) [facility] ([facility]) Platelet Count, Automated 271 10 150-450 Normal (applies to non-numeric results) [facility] ([facility]) Neutrophils % 65.2 % 36.0-66.0 Normal (applies to non-numeric re sults) [facility] ([facility]) Alcorn % 8.5 % 2.0-8.0 Above high normal [facility] ([facility]) Lymph % 23.9 % 24.0-44.0 Below low normal [facility] ( [facility]) Eos % 1.6 % 0.0-3.0 Normal (applies to non-numeric resul ts) [facility] ([facility]) Immature Granulocyte % 0.2 % 0-3.0 Normal (applies to non-n umeric results) [facility] ([facility]) Baso % 0.6 % 0.0-1.0 Normal (applies to non-numeric resul ts) [facility] ([facility]) Nucleated Red Blood Cell % 0.0 % 0-0 Normal (applies to n on-numeric results) [facility] ([facility]) Lymph # 2.0 10 1.5-5.0 Normal (applies to non-numeric resul ts) [facility] ([facility]) Neutrophils # 5.4 10 1.5-8.5 Normal (applies to non-numeric re sults) [facility] ([facility]) Alcorn # 0.7 10 0.0-0.8 Normal (applies to non-numeric resul ts) [facility] ([facility]) Baso # 0.1 10 0.0-0.2 Normal (applies to non-numeric resul ts) [facility] ([facility]) Eos # 0.1 10 0.0-0.5 Normal (applies to non-numeric resul ts) [facility] ([facility]) ID Date Data Source [id number] 01/13/2020 02:05:00 PM EST [facility] ([facility]) Name Value Range Interpretation Code Description Data Yumiko rce(s) Supporting Document(s) Cholesterol Level 219 mg/dL Above high normal [facility] ([facility]) Triglycerides Level 67 mg/dL Normal (applies to non-nume shilo results) [facility] ([facility]) LDL Cholesterol 116 mg/dL Above high normal [facility] ([facility]) Non-HDL-C 129 mg/dL Normal (applies to non-numeric resul ts) [facility] ([facility]) HDL Cholesterol 90 mg/dL Normal (applies to non-numeric results) [facility] ([facility]) Cholesterol Risk Ratio 2.433 Normal (applies to non-n umeric results) [facility] ([facility]) ID Date Data Source [id number] 01/13/2020 02:05:00 PM EST [facility] ([facility]) Name Value Range Interpretation Code Description Data Yumiko rce(s) Supporting Document(s) Creatinine For GFR 0.90 mg/dL 0.55-1.30 Normal (applies to non -numeric results) [facility] ([facility]) Glucose, Fasting 82 mg/dL 70-100 Normal (applies to non-numeric results) [facility] ([facility]) Blood Urea Nitrogen 17 mg/dL 7-18 Normal (applies to non-nume shilo results) [facility] ([facility]) Glomerular Filtration Rate Laboratory test result Normal (applies to non- numeric results) [facility] ([facility]) <content>Units are mL/min/1.73 m2</content>
<content></content>
<content>Chronic Kidney Disease Staging per NKF:</content>
<content></content>
<content>Stage I & II GFR >=60 Normal to Mildly Decreased</content>
<content>Stage III GFR 30- 59 Moderately Decreased</content>
<content>Stage IV GFR 15-29 Severely Decreased</content>
<content>Stage V GFR <15 Very Little GFR Left</content>
<content>ESRD GFR <15 on CONVERTIBLE POWER SHOVEL OPERATOR</content>
<content></content> Sodium Level 137 meq/L 136-145 Normal (applies to non-numeric res ults) [facility] ([facility]) Potassium Serum 4.7 meq/L 3.5-5.1 Normal (applies to non-numeric results) [facility] ([facility]) Carbon Dioxide Level 32 meq/L 21-32 Normal (applies to non-num abraham results) [facility] ([facility]) Chloride Level 103 meq/L 98-107 Normal (applies to non-numeric r esults) [facility] ([facility]) Anion Gap 2 meq/L 8-16 Below low normal [facility] ( [facility]) Calcium Level 10.1 mg/dL 8.8-10.2 Normal (applies to non-numeric re sults) [facility] ([facility]) Alkaline Phosphatase 75 U/L 45-117 Normal (applies to non-num abraham results) [facility] ([facility]) Ast/Sgot 26 U/L 7-37 Normal (applies to non-numeric resul ts) [facility] ([facility]) Alt/SGPT 26 U/L 12-78 Normal (applies to non-numeric resul ts) [facility] ([facility]) Total Protein 7.1 GM/DL 6.4-8.2 Normal (applies to non-numeric re sults) [facility] ([facility]) Bilirubin,Total 0.4 mg/dL 0.2-1.0 Normal (applies to non-numeric results) [facility] ([facility]) Albumin 3.7 GM/DL 3.2-5.2 Normal (applies to non-numeric resul ts) [facility] ([facility]) Albumin/Globulin Ratio 1.1 1.2-2.2 Below low normal [facility] ([facility]) ID Date Data Source [id number] 01/13/2020 02:05:00 PM EST [facility] ([facility]) Name Value Range Interpretation Code Description Data Yumiko rce(s) Supporting Document(s) White Blood Count 9.8 10 4.0-10.0 Normal (applies to non-numeri c results) [facility] ([facility]) Red Blood Count 4.48 10 4.00-5.40 Normal (applies to non-numeric results) [facility] ([facility]) Hematocrit 43.5 % 36.0-47.0 Normal (applies to non-numeric resul ts) [facility] ([facility]) Hemoglobin 14.1 g/dL 12.0-15.5 Normal (applies to non-numeric resul ts) [facility] ([facility]) Mean Corpuscular Volume 97.1 fl 80.0-96.0 Above high normal [facility] ([facility]) Mean Corpuscular Hemoglobin 31.5 pg 27.0-33.0 Norm al (applies to non-numeric results) [facility] ([facility]) Mean Corpuscular HGB Conc 32.4 g/dL 32.0-36.5 Normal (applies to non-numeric results) [facility] ([facility]) Neutrophils % 68.3 % 36.0-66.0 Above high normal MEDE NT ([facility]) Platelet Count, Automated 277 10 150-450 Normal (applies to non-numeric results) [facility] ([facility]) Red Cell Distribution Width 13.1 % 11.5-14.5 Norm al (applies to non-numeric results) [facility] ([facility]) Alcorn % 10.0 % 0.0-5.0 Above high normal [facility] ([facility]) Eos % 1.4 % 0.0-3.0 Normal (applies to non-numeric resul ts) [facility] ([facility]) Lymph % 19.7 % 24.0-44.0 Below low normal [facility] ( [facility]) Baso % 0.4 % 0.0-1.0 Normal (applies to non-numeric resul ts) [facility] ([facility]) Immature Granulocyte % 0.2 % 0-3.0 Normal (applies to non-n umeric results) [facility] ([facility]) Neutrophils # 6.7 10 1.5-8.5 Normal (applies to non-numeric re sults) [facility] ([facility]) Nucleated Red Blood Cell % 0.0 % 0-0 Normal (applies to n on-numeric results) [facility] ([facility]) Lymph # 1.9 10 1.5-5.0 Normal (applies to non-numeric resul ts) [facility] ([facility]) Eos # 0.1 10 0.0-0.5 Normal (applies to non-numeric resul ts) [facility] ([facility]) Alcorn # 1.0 10 0.0-0.8 Above high normal [facility] ([facility]) Baso # 0.0 10 0.0-0.2 Normal (applies to non-numeric resul ts) [facility] ([facility]) ID Date Data Source [id number] 01/13/2020 02:05:00 PM EST [facility] ([facility]) Name Value Range Interpretation Code Description Data Yumiko rce(s) Supporting Document(s) Calcidiol [Mass/volume] in Serum or Plasma 43.1 ng/mL 30.0- 100.0 Normal (applies to non-numeric results) [facility] ([facility]) ID Date Data Source [id number] 01/13/2020 02:05:00 PM EST [facility] ([facility]) Name Value Range Interpretation Code Description Data Yumiko rce(s) Supporting Document(s) Thyroid Stimulating Hormone 2.540 uIU/ML 0.358-3.740 Norm al (applies to non- numeric results) [facility] ([facility]) Free T4 1.18 ng/dL 0.76-1.46 Normal (applies to non-numeric resul ts) [facility] ([facility]) Procedure Social History Code Duration Value Status Description Data Source(s ) Smoking 01/15/2020 12:00:00 AM EST - 02/11/1976 12:00:00 AM ES T Quit completed Quit [facility] ([facility]) Vital Signs ID Date Data Source UNK Name Value Range Interpretation Code Description Data Source(s) Systolic blood pressure 126 mm[Hg] 126 mm[Hg] M EDENT ([facility]) Diastolic blood pressure 78 mm[Hg] 78 mm[Hg] [facility] ([facility]) Body height 58.0 [in_i] 58.0 [in_i] [facility] ([facility]) 4'10" Heart rate 50 /min 50 /min [facility] ([facility]) Respiratory rate 20 /min 20 /min [facility] ( [facility]) Body temperature 97.9 [degF] 97.9 [degF] [facility] ([facility]) Oxygen saturation in Arterial blood by Pulse oximetry 91 % 91 % [facility] ([facility]) Wells body weight 100 [lb_av] 100 [lb_av] MEDEN T ([facility]) Heart rate 83 /min 83 /min [facility] ([facility]) Systolic blood pressure 160 mm[Hg] 160 mm[Hg] M EDENT ([facility]) Diastolic blood pressure 94 mm[Hg] 94 mm[Hg] [facility] ([facility]) Body temperature 98.6 [degF] 98.6 [degF] [facility] ([facility]) Respiratory rate 16 /min 16 /min [facility] ( [facility]) Body height 58 [in_i] 58 [in_i] [facility] ([facility]) 4'10" Body weight 116.00 [lb_av] 116.00 [lb_av] [facility] T ([facility]) Body mass index (BMI) [Ratio] 24.2 kg/m2 24.2 k g/m2 [facility] ([facility]) Heart rate 75 /min 75 /min [facility] ([facility]) Systolic blood pressure 142 mm[Hg] 142 mm[Hg] M EDENT ([facility]) Diastolic blood pressure 80 mm[Hg] 80 mm[Hg] [facility] ([facility]) Body height 58.0 [in_i] 58.0 [in_i] [facility] ([facility]) 4'10" Body weight 120.00 [lb_av] 120.00 [lb_av] MEDEN T ([facility]) Body mass index (BMI) [Ratio] 25.1 kg/m2 25.1 k g/m2 [facility] ([facility]) Respiratory rate 18 /min 18 /min [facility] ( [facility]) Body temperature 97.3 [degF] 97.3 [degF] [facility] ([facility]) Oxygen saturation in Arterial blood by Pulse oximetry 96 % 96 % MEDDINESH ([facility]) Wells body weight 100 [lb_av] 100 [lb_av] MEDEN T ([facility]) Oxygen saturation in Arterial blood by Pulse oximetry 97 % 97 % RAFAEL ([facility]) Body height 58.0 [in_i] 58.0 [in_i] RAFAEL ([facility]) 4'10" Body weight 128.25 [lb_av] 128.25 [lb_av] MEDEN T ([facility]) Body mass index (BMI) [Ratio] 26.8 kg/m2 26.8 k g/m2 [facility]ESH ([facility]) Heart rate 66 /min 66 /min MEDDINESH ([facility]) Respiratory rate 18 /min 18 /min MEDDINESH ( [facility]) Body temperature 97.9 [degF] 97.9 [degF] MEDDINESH ([facility]) Wells body weight 100 [lb_av] 100 [lb_av] MEDEN T ([facility]) Systolic blood pressure 136 mm[Hg] 136 mm[Hg] M NICHOLAS ([facility]) Diastolic blood pressure 68 mm[Hg] 68 mm[Hg] RAFAEL ([facility])
[2021-01-12] MEDS ORDERED: BREO1INH3 PO (19:10)
[2021-01-12] MEDS ORDERED: MONT10TA10 PO (19:10)
[2021-01-12] MEDS ORDERED: CLAR10CA3 PO (19:10)
[2021-01-12] MEDS ORDERED: LEVO25TA5 PO (19:10)
[2021-01-12] MEDS ORDERED: BREO1INH PO (19:10)
[2021-01-12] MEDS ORDERED: PSEU30TA21 PO (19:10)
--- OUTSIDE RECORDS SUMMARY | 2021-01-12 20:02 | CCD ---
Author Author [facility] Organization [facility] Address Unknown Phone Unavailable Care Team Providers Care Multimedia Producer Name Role Phone SARAH-RUTH, JOSEPH DO Unavailable [...] Unavailable Unavailable SARAH-RUTH, JOSEPH DO Unavailable Unavailable SARAH-RUHT, JOSEPH DO Unavailable Unavailable SARAH-RUTH, JOSEPH DO [...] Unavailable SARAH-RUTH, JOSEPH DO Unavailable Unavailable SARAH-RUTH, JOSPEH DO Unavailable Unavailable SARAH-RUTH, JOSEPH DO Unavailable [...] Unavailable Unavailable SARAH-RUTH, JOSEPH DO Unavailable Unavailable SARHA-RUTH, JOSEPH DO Unavailable Unavailable SARAH-RUTH, JOSEPH DO [...] Unavailable O'ashly, A Mick PA Unavailable Unavailable O'aslhy, A Mick PA Unavailable Unavailable O'ashly, A [...] is protected by Article 27-F of the [facility] Public Health law. If you continue you may have access to information: Regarding HIV / AIDS; Provided by facilities licensed or operated by the [facility] Office of Mental Health; or Provided by the [facility] Office for People With Developmental Disabilities. If such information is present, then the following [facility] mandated warning applies: This information has been [...] law may result in a fine or senior care sentence or both. A general authorization for the release of medical or other information is NOT sufficient authorization for further disc losure. Family History Family Member Name Family Member Gender Family Member Status Date o f Status Description Data Source(s) Unknown Male Problem [facility] ([facility]) () Unknown Unknown Problem [facility] ([facility]) Encounters Encounter Providers Location Date Indications Data Source(s ) Outpatient Attender: Mick HAWLEY [facility] 01/10/2021 03:00:00 PM EST [facility] ([facility]) Outpatient Attender: Mick HAWLEY [facility] 07/26/2020 11:00:00 AM EDT [facility] ([facility]) Office Visit Attender: JOSEPH BLANKENSHIP DO [facility] 01/15/2020 08:20:00 AM EST [facility] ([facility]) Immunizations Vaccine Date Status Description Data Source(s) COVID-19 VACCINE Moderna 05/24/2020 12:00:00 AM EDT completed [facility] Vaccine Series Complete: YESThis Data wa s Submitted to [facility] Via [employer]. COVID-19 VACCINE Moderna 04/26/2020 12:00:00 AM EDT completed [facility] Vaccine Series Complete: NOThis Data was Submitted to [facility] Via [employer]. Medications Medication Brand Name Start Date Product Form Dose Route Admi nistrative Instructions Pharmacy Instructions Status Indications Reaction Description Data Source(s) 60 ACTUAT Albuterol 0.09 MG/ACTUAT Metered Dose Inhaler Albu terol Sulfate HFA 01/10/2021 12:00:00 AM EST RESPIRATORY active [facility] ([facility]) Amoxicillin 875 MG / Clavulanate 125 MG Oral Tablet Am oxicillin/Clavulanate Potassium 01/10/2021 12:00:00 AM EST ORAL active [facility] ([facility]) 25 mcg 12/12/2020 12:00:00 AM EDT tablet [...] 07/26/2020 12:00:00 AM EDT ORAL active [facility] ([facility]) Flonase Allergy Relief Flonase Allergy Relief 07/26/2020 12:00:00 AM E DT active [facility] ([facility]) 25 mcg 06/06/2020 12:00:00 AM EDT tablet [...] type / Coverage type Policy ID Covered republican ID Covered republican's relationship to bell Policy Bell Plan Information MEDICARE [id number] SP [id number] [facility] [id number] 82 [id number] Medicare [place] Medicare Primary [id number] Self [id number] Medicare [place] Medicare Primary [id number] Self [id number] MVP Commercial [id number] Self [id number] MEDICARE [id number] SP [id number] A Medicare [place] Medicare Primary [id number] Self [id number] Medicare [place] Medicare Primary [id number] Self [id number] P Commercial [id number] Self [id number] Medicare [place] Medicare Primary [id number] Self [id number] [facility] O [id number] S [id number] MEDICARE [id number] S [id number] A P Commercial [id number] Self [id number] Medicare [place] Medicare Primary [id number] Self [id number] MVP Commercial [id number] Self Medicare Natl Gov't Servi Medicare Primary [id number] Self p [id number] [facility] Insurance [facility] Medicare Part B [id number] Medica re MEDICARE [facility] [id number] 9A HARIS JERSEY SHORE PHY [id number] SP [id number] A [id number] Problems, Conditions, and Diagnoses No Information Surgeries/Procedures Procedure Description Date Indications Data Source(s) OFFICE OUTPATIENT VISIT 15 MINUTES 01/10/2021 12:00:00 AM EST [facility] ([facility]) Mammography (procedure) 08/30/2020 12:00:00 AM EDT [facility] OFFICE OUTPATIENT VISIT 25 MINUTES 07/26/2020 12:00:00 AM EDT [facility] ([facility]) Results ID Date Data Source [id number] 01/10/2021 04:10:00 PM EST [facility] ([facility]) Name Value Range Interpretation Code Description Data Yumiko rce(s) Supporting Document(s) Respiratory Panel Laboratory test result [facility] ([facility]) This respiratory PCR panel detects Influ mirta [...] 1: HUMAN RHINOVIRUS/ENTEROVIRUS ID Date Data Source [id number] 01/10/2021 04:10:00 PM EST [facility] Name Value Range Interpretation Code Description Data Yumiko rce(s) Supporting Document(s) SARS coronavirus 2 RNA [Presence] in Res piratory specimen by BLANKA with probe detection NEGATIVE - SARS-CoV-2 (COVID19) [facility]ALTH SYSTEM This lab was ordered by [facility] a nd reported by [facility]. ID Date Data Source [id number] 07/27/2020 03:15:00 PM EDT [facility] ([facility]) Name Value Range Interpretation Code Description Data Yumiko rce(s) Supporting Document(s) Triglycerides Level 48 mg/dL Normal (applies to non-nume shilo results) [facility] ([facility]) HDL Cholesterol 92 mg/dL Normal (applies to non-numeric results) [facility] ([facility]) Cholesterol Level 214 mg/dL Above high normal [facility] ([facility]) Cholesterol Risk Ratio 2.326 Normal (applies to non-n umeric results) [facility] ([facility]) LDL Cholesterol 112 mg/dL Above high normal ME DENT ([facility]) Non-HDL-C 122 mg/dL Normal (applies to non-numeric resul ts) [facility] ([facility]) ID Date Data Source [id number] 07/27/2020 03:15:00 PM EDT [facility] ([facility]) Name Value Range Interpretation Code Description Data Yumiko rce(s) Supporting Document(s) Glucose, Fasting 78 mg/dL 70-100 Normal (applies to non-numeric results) [facility] ([facility]) Glomerular Filtration Rate Laboratory test result Normal (applies to non- numeric results) [facility] ([facility]) <content>Units are mL/min/1.73 m2</content>
<content></content>
<content>Chronic Kidney Disease Staging per NKF:</content>
<content></content>
<content>Stage I & II GFR >=60 Normal to Mildly Decreased</content>
<content>Stage III GFR 30- 59 Moderately Decreased</content>
<content>Stage IV GFR 15-29 Severely Decreased</content>
<content>Stage V GFR <15 Very Little GFR Left</content>
<content>ESRD GFR <15 on LAYDOWN MACHINE OPERATOR</content>
<content></content> Blood Urea Nitrogen 12 mg/dL 7-18 Normal (applies to non-nume shilo results) [facility] ([facility]) Creatinine For GFR 0.78 mg/dL 0.55-1.30 Normal (applies to non -numeric results) [facility] ([facility]) Potassium Serum 4.7 meq/L 3.5-5.1 Normal (applies to non-numeric results) [facility] ([facility]) Sodium Level 138 meq/L 136-145 Normal (applies to non-numeric res ults) [facility] ([facility]) Chloride Level 104 meq/L 98-107 Normal (applies to non-numeric r esults) [facility] ([facility]) Carbon Dioxide Level 30 meq/L 21-32 Normal (applies to non-num abraham results) [facility] ([facility]) Calcium Level 10.0 mg/dL 8.8-10.2 Normal (applies to non-numeric re sults) [facility] ([facility]) Anion Gap 4 meq/L 8-16 Below low normal [facility] ( [facility]) Ast/Sgot 24 U/L 7-37 Normal (applies to non-numeric resul ts) [facility] ([facility]) Alt/SGPT 30 U/L 12-78 Normal (applies to non-numeric resul ts) [facility] ([facility]) Bilirubin,Total 0.4 mg/dL 0.2-1.0 Normal (applies to non-numeric results) [facility] ([facility]) Alkaline Phosphatase 67 U/L 45-117 Normal (applies to non-num abraham results) [facility] ([facility]) Total Protein 7.1 GM/DL 6.4-8.2 Normal (applies to non-numeric re sults) [facility] ([facility]) Albumin 3.7 GM/DL 3.2-5.2 Normal (applies to non-numeric resul ts) [facility] ([facility]) Albumin/Globulin Ratio 1.1 1.2-2.2 Below low normal [facility] ([facility]) ID Date Data Source [id number] 07/27/2020 03:15:00 PM EDT [facility] ([facility]) Name Value Range Interpretation Code Description Data Yumiko rce(s) Supporting Document(s) Calcidiol [Mass/volume] in Serum or Plasma 50.7 ng/mL 30.0- 100.0 Normal (applies to non-numeric results) [facility] ([facility]) ID Date Data Source [id number] 07/27/2020 03:15:00 PM EDT [facility] ([facility]) Name Value Range Interpretation Code Description Data Yumiko rce(s) Supporting Document(s) Free T4 1.06 ng/dL 0.76-1.46 Normal (applies to non-numeric resul ts) [facility] ([facility]) Thyroid Stimulating Hormone 2.300 uIU/ML 0.358-3.740 Norm al (applies to non- numeric results) [facility] ([facility]) ID Date Data Source [id number] 07/27/2020 03:15:00 PM EDT [facility] ([facility]) Name Value Range Interpretation Code Description Data Yumiko rce(s) Supporting Document(s) White Blood Count 8.3 10 4.0-10.0 Normal (applies to non-numeri c results) [facility] ([facility]) Red Blood Count 4.39 10 4.00-5.40 Normal (applies to non-numeric results) [facility] ([facility]) Hemoglobin 14.0 g/dL 12.0-15.5 Normal (applies to non-numeric resul ts) [facility] ([facility]) Hematocrit 43.3 % 36.0-47.0 Normal (applies to non-numeric resul ts) [facility] ([facility]) Mean Corpuscular Volume 98.6 fl 80.0-96.0 Above high normal [facility] ([facility]) Mean Corpuscular Hemoglobin 31.9 pg 27.0-33.0 Norm al (applies to non-numeric results) [facility] ([facility]) Red Cell Distribution Width 12.8 % 11.5-14.5 Norm al (applies to non-numeric results) [facility] ([facility]) Mean Corpuscular HGB Conc 32.3 g/dL 32.0-36.5 Normal (applies to non-numeric results) [facility] ([facility]) Platelet Count, Automated 271 10 150-450 Normal (applies to non-numeric results) [facility] ([facility]) Neutrophils % 65.2 % 36.0-66.0 Normal (applies to non-numeric re sults) [facility] ([facility]) [place] % 8.5 % 2.0-8.0 Above high normal [facility] ([facility]) Lymph % 23.9 % 24.0-44.0 Below low normal [facility] ( [facility]) Eos % 1.6 % 0.0-3.0 Normal (applies to non-numeric resul ts) [facility] ([facility]) Immature Granulocyte % 0.2 % 0-3.0 Normal (applies to non-n umeric results) [facility] ([facility]) Baso % 0.6 % 0.0-1.0 Normal (applies to non-numeric resul ts) [facility] ([facility]) Nucleated Red Blood Cell % 0.0 % 0-0 Normal (applies to n on-numeric results) [facility] ([facility]) Lymph # 2.0 10 1.5-5.0 Normal (applies to non-numeric resul ts) [facility] ([facility]) Neutrophils # 5.4 10 1.5-8.5 Normal (applies to non-numeric re sults) [facility] ([facility]) [place] # 0.7 10 0.0-0.8 Normal (applies to non-numeric resul ts) [facility] ([facility]) Baso # 0.1 10 0.0-0.2 Normal (applies to non-numeric resul ts) [facility] ([facility]) Eos # 0.1 10 0.0-0.5 Normal (applies to non-numeric resul ts) [facility] ([facility]) ID Date Data Source [id number] 01/13/2020 02:05:00 PM EST [facility] ([facility]) Name Value Range Interpretation Code Description Data Yumiko rce(s) Supporting Document(s) Cholesterol Level 219 mg/dL Above high normal [facility] ([facility]) Triglycerides Level 67 mg/dL Normal (applies to non-nume shilo results) [facility] ([facility]) LDL Cholesterol 116 mg/dL Above high normal [facility] ([facility]) Non-HDL-C 129 mg/dL Normal (applies to non-numeric resul ts) [facility] ([facility]) HDL Cholesterol 90 mg/dL Normal (applies to non-numeric results) [facility] ([facility]) Cholesterol Risk Ratio 2.433 Normal (applies to non-n umeric results) [facility] ([facility]) ID Date Data Source [id number] 01/13/2020 02:05:00 PM EST [facility] ([facility]) Name Value Range Interpretation Code Description Data Yumiko rce(s) Supporting Document(s) Creatinine For GFR 0.90 mg/dL 0.55-1.30 Normal (applies to non -numeric results) [facility] ([facility]) Glucose, Fasting 82 mg/dL 70-100 Normal (applies to non-numeric results) [facility] ([facility]) Blood Urea Nitrogen 17 mg/dL 7-18 Normal (applies to non-nume shilo results) [facility] ([facility]) Glomerular Filtration Rate Laboratory test result Normal (applies to non- numeric results) [facility] ([facility]) <content>Units are mL/min/1.73 m2</content>
<content></content>
<content>Chronic Kidney Disease Staging per NKF:</content>
<content></content>
<content>Stage I & II GFR >=60 Normal to Mildly Decreased</content>
<content>Stage III GFR 30- 59 Moderately Decreased</content>
<content>Stage IV GFR 15-29 Severely Decreased</content>
<content>Stage V GFR <15 Very Little GFR Left</content>
<content>ESRD GFR <15 on LAYDOWN MACHINE OPERATOR</content>
<content></content> Sodium Level 137 meq/L 136-145 Normal (applies to non-numeric res ults) [facility] ([facility]) Potassium Serum 4.7 meq/L 3.5-5.1 Normal (applies to non-numeric results) [facility] ([facility]) Carbon Dioxide Level 32 meq/L 21-32 Normal (applies to non-num abraham results) [facility] ([facility]) Chloride Level 103 meq/L 98-107 Normal (applies to non-numeric r esults) [facility] ([facility]) Anion Gap 2 meq/L 8-16 Below low normal [facility] ( [facility]) Calcium Level 10.1 mg/dL 8.8-10.2 Normal (applies to non-numeric re sults) [facility] ([facility]) Alkaline Phosphatase 75 U/L 45-117 Normal (applies to non-num abraham results) [facility] ([facility]) Ast/Sgot 26 U/L 7-37 Normal (applies to non-numeric resul ts) [facility] ([facility]) Alt/SGPT 26 U/L 12-78 Normal (applies to non-numeric resul ts) [facility] ([facility]) Total Protein 7.1 GM/DL 6.4-8.2 Normal (applies to non-numeric re sults) [facility] ([facility]) Bilirubin,Total 0.4 mg/dL 0.2-1.0 Normal (applies to non-numeric results) [facility] ([facility]) Albumin 3.7 GM/DL 3.2-5.2 Normal (applies to non-numeric resul ts) [facility] ([facility]) Albumin/Globulin Ratio 1.1 1.2-2.2 Below low normal [facility] ([facility]) ID Date Data Source [id number] 01/13/2020 02:05:00 PM EST [facility] ([facility]) Name Value Range Interpretation Code Description Data Yumiko rce(s) Supporting Document(s) White Blood Count 9.8 10 4.0-10.0 Normal (applies to non-numeri c results) [facility] ([facility]) Red Blood Count 4.48 10 4.00-5.40 Normal (applies to non-numeric results) [facility] ([facility]) Hematocrit 43.5 % 36.0-47.0 Normal (applies to non-numeric resul ts) [facility] ([facility]) Hemoglobin 14.1 g/dL 12.0-15.5 Normal (applies to non-numeric resul ts) [facility] ([facility]) Mean Corpuscular Volume 97.1 fl 80.0-96.0 Above high normal [facility] ([facility]) Mean Corpuscular Hemoglobin 31.5 pg 27.0-33.0 Norm al (applies to non-numeric results) [facility] ([facility]) Mean Corpuscular HGB Conc 32.4 g/dL 32.0-36.5 Normal (applies to non-numeric results) [facility] ([facility]) Neutrophils % 68.3 % 36.0-66.0 Above high normal [facility] NT ([facility]) Platelet Count, Automated 277 10 150-450 Normal (applies to non-numeric results) [facility] ([facility]) Red Cell Distribution Width 13.1 % 11.5-14.5 Norm al (applies to non-numeric results) [facility] ([facility]) [place] % 10.0 % 0.0-5.0 Above high normal [facility] ([facility]) Eos % 1.4 % 0.0-3.0 Normal (applies to non-numeric resul ts) [facility] ([facility]) Lymph % 19.7 % 24.0-44.0 Below low normal [facility] ( [facility]) Baso % 0.4 % 0.0-1.0 Normal (applies to non-numeric resul ts) [facility] ([facility]) Immature Granulocyte % 0.2 % 0-3.0 Normal (applies to non-n umeric results) [facility] ([facility]) Neutrophils # 6.7 10 1.5-8.5 Normal (applies to non-numeric re sults) [facility] ([facility]) Nucleated Red Blood Cell % 0.0 % 0-0 Normal (applies to n on-numeric results) [facility] ([facility]) Lymph # 1.9 10 1.5-5.0 Normal (applies to non-numeric resul ts) [facility] ([facility]) Eos # 0.1 10 0.0-0.5 Normal (applies to non-numeric resul ts) [facility] ([facility]) [place] # 1.0 10 0.0-0.8 Above high normal [facility] ([facility]) Baso # 0.0 10 0.0-0.2 Normal (applies to non-numeric resul ts) [facility] ([facility]) ID Date Data Source [id number] 01/13/2020 02:05:00 PM EST [facility] ([facility]) Name Value Range Interpretation Code Description Data Yumiko rce(s) Supporting Document(s) Calcidiol [Mass/volume] in Serum or Plasma 43.1 ng/mL 30.0- 100.0 Normal (applies to non-numeric results) [facility] ([facility]) ID Date Data Source [id number] 01/13/2020 02:05:00 PM EST [facility] ([facility]) Name Value Range Interpretation Code Description Data Yumiko rce(s) Supporting Document(s) Thyroid Stimulating Hormone 2.540 uIU/ML 0.358-3.740 Norm al (applies to non- numeric results) [facility] ([facility]) Free T4 1.18 ng/dL 0.76-1.46 Normal (applies to non-numeric resul ts) [facility] ([facility]) Procedure Social History Code Duration Value Status Description Data Source(s ) Smoking 01/15/2020 12:00:00 AM EST - 02/11/1976 12:00:00 AM ES T Quit completed Quit [facility] ([facility]) Vital Signs ID Date Data Source [id number] Name Value Range Interpretation Code Description Data Source(s) Systolic blood pressure 126 mm[Hg] 126 mm[Hg] M [facility]ENT ([facility]) Diastolic blood pressure 78 mm[Hg] 78 mm[Hg] [facility] ([facility]) Body height 58.0 [in_i] 58.0 [in_i] [facility] ([facility] 4'10" Heart rate 50 /min 50 /min [facility] ([facility]) Respiratory rate 20 /min 20 /min [facility] ( [facility]) Body temperature 97.9 [degF] 97.9 [degF] [facility] ([facility]) Oxygen saturation in Arterial blood by Pulse oximetry 91 % 91 % [facility] ([facility]) [place] body weight 100 [lb_av] 100 [lb_av] MEDEN T ([facility]) Heart rate 83 /min 83 /min [facility] ([facility]) Diastolic blood [...] g/m2 [facility] ([facility]) Systolic blood pressure 160 mm[Hg] 160 mm[Hg] M EDENT ([facility]) Systolic blood pressure 142 mm[Hg] 142 mm[Hg] M EDENT ([facility]) Heart rate 75 /min 75 /min [facility] ([facility]) Respiratory rate 18 /min 18 /min [facility] ( [facility]) Body temperature 97.3 [degF] 97.3 [degF] [facility] ([facility]) Oxygen saturation in Arterial blood by Pulse oximetry 96 % 96 % [facility] ([facility]) [place] body weight 100 [lb_av] 100 [lb_av] MEDEN T ([facility]) Diastolic blood pressure 80 mm[Hg] 80 mm[Hg] [facility] ([facility]) Body height 58.0 [in_i] 58.0 [in_i] [facility] ([facility]) 4'10" Body weight 120.00 [lb_av] 120.00 [lb_av] MEDDIXIE T ([facility]) Body mass index (BMI) [Ratio] 25.1 kg/m2 25.1 k g/m2 MEDDINESH ([facility]) Oxygen saturation in Arterial blood by Pulse oximetry 97 % 97 % RAFAEL ([facility]) Body height 58.0 [in_i] 58.0 [in_i] [facility]FAEL ([facility]) 4'10" Body weight 128.25 [lb_av] 128.25 [lb_av] MEDDIXIE T ([facility]) Body mass index (BMI) [Ratio] 26.8 kg/m2 26.8 k g/m2 MEDDINESH ([facility]) Heart rate 66 /min 66 /min RAFAEL ([facility]) Respiratory rate 18 /min 18 /min MEDDINESH ( [facility]) Body temperature 97.9 [degF] 97.9 [degF] MEDDINESH ([facility]) [place] body weight 100 [lb_av] 100 [lb_av] MEDDIXIE T ([facility]) Systolic blood pressure 136 mm[Hg] 136 mm[Hg] M EDENT ([facility]) Diastolic blood pressure 68 mm[Hg] 68 mm[Hg] RAFAEL ([facility])
== END 2021-01-12 20:16 | disposition left against medical advice (07) ==
LOC: M ED 18:59
DX: Z53.21 Procedure and treatment not carried out due to patient leaving prior to being seen by health care provider (principal)

== ENCOUNTER → 2021-01-24 | Outpatient (REF) | payer MEDICARE, OTHER | LOC: M LAB REF 16:36 | PROVIDERS: ATTEND Physician Assistant | DX: R19.7 Diarrhea, unspecified (principal) ==

== ENCOUNTER → 2021-02-28 | Outpatient (REF) | payer MEDICARE, OTHER ==
[2021-02-28 14:00] LABS: C REACTIVE PROTEIN QUANTITATIV < 0.30 MG/DL (0.00-0.30); RHEUMATOID FACTOR QUANT < 10.0 IU/ML (<15.0)
== END ==
LOC: M LAB REF 13:06
PROVIDERS: ATTEND Nurse Practitioner Adult Health
DX: R91.8 Other nonspecific abnormal finding of lung field (principal)

== ENCOUNTER → 2021-03-08 | Outpatient (CLI) | payer MEDICARE, OTHER | LOC: M PLAIMG 10:22 | PROVIDERS: ATTEND Nurse Practitioner Adult Health | DX: R91.8 Other nonspecific abnormal finding of lung field (principal) ==

== ENCOUNTER → 2021-08-22 | Outpatient (CLI) | payer MEDICARE, OTHER ==
[2021-08-22 12:41] LABS: BASO % 0.4 % (0.0-1.0); EOS # 0.2 10^3/uL (0.0-0.5); EOS % 2.2 % (0.0-3.0); HEMATOCRIT 41.2 % (36.0-47.0); HEMOGLOBIN 13.4 g/dl (12.0-15.5); LYMPH # 1.8 10^3/uL (1.5-5.0); LYMPH % 18.7 % (24.0-44.0); MEAN CORPUSCULAR HEMOGLOBIN 31.2 pg (27.0-33.0); MEAN CORPUSCULAR HGB CONC 32.5 g/dl (32.0-36.5); MEAN CORPUSCULAR VOLUME 95.8 fl (80.0-96.0); MONO # 0.8 10^3/uL (0.0-0.8); MONO % 8.1 % (2.0-8.0); NEUTROPHILS # 6.7 10^3/uL (1.5-8.5); NEUTROPHILS % 70.3 % (36.0-66.0); PLATELET COUNT, AUTOMATED 281 10^3/uL (150-450); WHITE BLOOD COUNT 9.5 10^3/uL (4.0-10.0)
[2021-08-22 16:05] LABS: ALBUMIN 3.3 GM/DL (3.2-5.2); ALT/SGPT 33 U/L (12-78); BILIRUBIN,TOTAL 0.7 MG/DL (0.2-1.0); BLOOD UREA NITROGEN 16 MG/DL (7-18); CALCIUM LEVEL 9.9 MG/DL (8.8-10.2); CARBON DIOXIDE LEVEL 30 MEQ/L (21-32); CHLORIDE LEVEL 102 MEQ/L (98-107); CHOLESTEROL LEVEL 178 MG/DL (<200); CHOLESTEROL RISK RATIO 2.094 (<5); GLOMERULAR FILTRATION RATE > 60.0 (>39); GLUCOSE, FASTING 99 MG/DL (70-100); HDL CHOLESTEROL 85 MG/DL (>40); LDL CHOLESTEROL 86 MG/DL (<100); NON-HDL-C 93 MG/DL; POTASSIUM SERUM 4.2 MEQ/L (3.5-5.1); SODIUM LEVEL 135 MEQ/L (136-145); TOTAL PROTEIN 6.6 GM/DL (6.4-8.2); TRIGLYCERIDES LEVEL 35 MG/DL (<150)
[2021-08-22 17:31] LABS: TOTAL 25(OH) VITAMIN D 44.7 NG/ML (30.0-100.0)
== END ==
LOC: M ADAMS 10:10
PROVIDERS: ATTEND Family Medicine
DX: J44.9 Chronic obstructive pulmonary disease, unspecified (principal); E55.9 Vitamin D deficiency, unspecified; E03.9 Hypothyroidism, unspecified

== ENCOUNTER → 2021-09-26 | Outpatient (CLI) | payer MEDICARE, OTHER | LOC: M RAD 09:59 | PROVIDERS: ATTEND Internal Medicine Pulmonary Disease | DX: J84.9 Interstitial pulmonary disease, unspecified (principal); R91.8 Other nonspecific abnormal finding of lung field ==

== ENCOUNTER → 2021-10-03 | Outpatient (CLI) | payer MEDICARE, OTHER | LOC: M WHC 10:01 | PROVIDERS: ATTEND Physician Assistant | DX: Z12.31 Encounter for screening mammogram for malignant neoplasm of breast (principal) ==

== ENCOUNTER → 2022-06-21 | Outpatient (CLI) | payer MEDICARE, OTHER | LOC: M PLAIMG 10:23 | PROVIDERS: ATTEND Internal Medicine Pulmonary Disease | DX: J84.10 Pulmonary fibrosis, unspecified (principal) ==

== ENCOUNTER → 2022-10-04 | Outpatient (CLI) | payer MEDICARE, OTHER | LOC: M WHC 09:33 | PROVIDERS: ATTEND Family Medicine | DX: Z12.31 Encounter for screening mammogram for malignant neoplasm of breast (principal) ==

== ENCOUNTER → 2023-03-08 | Outpatient (REF) | payer MEDICARE, OTHER ==
[2023-03-08 13:37] LABS: BASO # 0.1 10^3/uL (0.0-0.2); BASO % 0.7 % (0.0-1.0); EOS # 0.2 10^3/uL (0.0-0.5); EOS % 2.2 % (0.0-3.0); HEMATOCRIT 40.1 % (36.0-47.0); HEMOGLOBIN 13.3 g/dl (12.0-15.5); LYMPH % 28.1 % (24.0-44.0); MEAN CORPUSCULAR HEMOGLOBIN 31.4 pg (27.0-33.0); MEAN CORPUSCULAR HGB CONC 33.2 g/dl (32.0-36.5); MEAN CORPUSCULAR VOLUME 94.8 fl (80.0-96.0); MONO # 0.6 10^3/uL (0.0-0.8); MONO % 8.9 % (2.0-8.0); NEUTROPHILS # 4.3 10^3/uL (1.5-8.5); NEUTROPHILS % 59.8 % (36.0-66.0); PLATELET COUNT, AUTOMATED 278 10^3/uL (150-450); RED BLOOD COUNT 4.23 10^6/uL (4.00-5.40); WHITE BLOOD COUNT 7.2 10^3/uL (4.0-10.0)
[2023-03-08 13:58] LABS: ALBUMIN 3.3 G/DL (3.2-5.2); ALKALINE PHOSPHATASE 91 U/L (46-116); ALT/SGPT 20 U/L (7.0-40); AST/SGOT 21 U/L (<34); BILIRUBIN,TOTAL 0.5 MG/DL (0.3-1.2); BLOOD UREA NITROGEN 15 MG/DL (9-23); CALCIUM LEVEL 10.5 MG/DL (8.3-10.6); CARBON DIOXIDE LEVEL 30 MMOL/L (20-31); CHLORIDE LEVEL 99 MMOL/L (98-107); CHOLESTEROL LEVEL 182 MG/DL (<200); CHOLESTEROL RISK RATIO 2.25 (<5); CREATININE FOR GFR 0.88 MG/DL (0.55-1.30); FREE T4 1.09 NG/DL (0.89-1.76); GLOMERULAR FILTRATION RATE > 60.0 (>32); GLUCOSE, FASTING 90 MG/DL (74-106); HDL CHOLESTEROL 80.8 MG/DL (>40); NON-HDL-C 101.2 MG/DL; POTASSIUM SERUM 4.2 MMOL/L (3.5-5.1); SODIUM LEVEL 131 MMOL/L (136-145); THYROID STIMULATING HORMONE 2.555 uIU/ML (0.55-4.78); TOTAL PROTEIN 6.9 G/DL (5.7-8.2); TRIGLYCERIDES LEVEL 61 MG/DL (<150)
== END ==
LOC: M LABDRWAD 12:46
PROVIDERS: ATTEND Physician Assistant
DX: E03.9 Hypothyroidism, unspecified (principal); E55.9 Vitamin D deficiency, unspecified; Z79.899 Other long term (current) drug therapy

== ENCOUNTER → 2023-03-18 | Outpatient (REF) | payer MEDICARE, OTHER | LOC: M LAB REF 16:56 | PROVIDERS: ATTEND Family Medicine | DX: R30.0 Dysuria (principal) ==

== ENCOUNTER → 2023-03-28 | Outpatient (REF) | payer MEDICARE, OTHER ==
[2023-03-28 19:41] LABS: BLOOD UREA NITROGEN 21 MG/DL (9-23); CALCIUM LEVEL 9.8 MG/DL (8.3-10.6); CARBON DIOXIDE LEVEL 30 MMOL/L (20-31); CHLORIDE LEVEL 101 MMOL/L (98-107); CREATININE FOR GFR 0.84 MG/DL (0.55-1.30); GLOMERULAR FILTRATION RATE > 60.0 (>32); GLUCOSE, FASTING 86 MG/DL (74-106); POTASSIUM SERUM 4.8 MMOL/L (3.5-5.1); SODIUM LEVEL 135 MMOL/L (136-145)
== END ==
LOC: M LABDRWAD 18:42
PROVIDERS: ATTEND Family Medicine
DX: E87.1 Hypo-osmolality and hyponatremia (principal)

== ENCOUNTER → 2023-06-17 | Outpatient (CLI) | payer MEDICARE, OTHER | LOC: M RAD 08:19 | PROVIDERS: ATTEND Internal Medicine Pulmonary Disease | DX: J84.9 Interstitial pulmonary disease, unspecified (principal) ==

== ENCOUNTER → 2024-03-26 | Outpatient (CLI) | payer MEDICARE, OTHER | LOC: M WHC 09:39 | PROVIDERS: ATTEND Family Medicine | DX: Z12.31 Encounter for screening mammogram for malignant neoplasm of breast (principal); M85.80 Other specified disorders of bone density and structure, unspecified site ==

== ENCOUNTER → 2024-03-26 | Outpatient (CLI) | payer MEDICARE, OTHER ==
[2024-03-26 15:07] LABS: BASO % 0.5 % (0.0-1.0); EOS # 0.2 10^3/uL (0.0-0.5); EOS % 2.3 % (0.0-3.0); HEMOGLOBIN 13.6 g/dl (12.0-15.5); LYMPH # 1.6 10^3/uL (1.5-5.0); LYMPH % 24.4 % (24.0-44.0); MEAN CORPUSCULAR HEMOGLOBIN 31.3 pg (27.0-33.0); MEAN CORPUSCULAR HGB CONC 32.4 g/dl (32.0-36.5); MEAN CORPUSCULAR VOLUME 96.8 fl (80.0-96.0); MONO # 0.7 10^3/uL (0.0-0.8); MONO % 10.1 % (2.0-8.0); NEUTROPHILS # 4.1 10^3/uL (1.5-8.5); NEUTROPHILS % 62.4 % (36.0-66.0); PLATELET COUNT, AUTOMATED 269 10^3/uL (150-450); RED BLOOD COUNT 4.34 10^6/uL (4.00-5.40); WHITE BLOOD COUNT 6.5 10^3/uL (4.0-10.0)
[2024-03-26 15:14] LABS: TOTAL 25(OH) VITAMIN D 43.5 NG/ML (20.0-100.0)
[2024-03-26 15:15] LABS: ALBUMIN 3.2 G/DL (3.2-5.2); ALKALINE PHOSPHATASE 103 U/L (35-104); ALT/SGPT 34 U/L (7.0-40); AST/SGOT 32 U/L (<34); BILIRUBIN,TOTAL 0.3 MG/DL (0.3-1.2); BLOOD UREA NITROGEN 16 MG/DL (9-23); CALCIUM LEVEL 10.6 MG/DL (8.3-10.6); CARBON DIOXIDE LEVEL 32 MMOL/L (20-31); CHLORIDE LEVEL 102 MMOL/L (98-107); CHOLESTEROL LEVEL 178 MG/DL (<200); CHOLESTEROL RISK RATIO 2.21 (<5); GLOMERULAR FILTRATION RATE > 60.0 (>32); GLUCOSE, FASTING 85 MG/DL (74-106); HDL CHOLESTEROL 80.3 MG/DL (>40); LDL CHOLESTEROL 88.3 MG/DL (<100); NON-HDL-C 97.7 MG/DL; POTASSIUM SERUM 4.3 MMOL/L (3.5-5.1); SODIUM LEVEL 140 MMOL/L (136-145); TOTAL PROTEIN 6.9 G/DL (5.7-8.2); TRIGLYCERIDES LEVEL 47 MG/DL (<150)
[2024-03-26 15:17] LABS: FREE T4 1.12 NG/DL (0.89-1.76)
== END ==
LOC: M PLALAB 09:41
PROVIDERS: ATTEND Family Medicine
DX: Z00.00 Encounter for general adult medical examination without abnormal findings (principal); M81.0 Age-related osteoporosis without current pathological fracture; Z12.31 Encounter for screening mammogram for malignant neoplasm of breast; E55.9 Vitamin D deficiency, unspecified; E03.9 Hypothyroidism, unspecified; M85.80 Other specified disorders of bone density and structure, unspecified site

== ENCOUNTER → 2024-06-18 | Outpatient (CLI) | payer MEDICARE, OTHER | LOC: M RAD 09:38 | PROVIDERS: ATTEND Internal Medicine Pulmonary Disease | DX: J84.9 Interstitial pulmonary disease, unspecified (principal) ==

== ENCOUNTER 2024-09-28 20:54 | Observation (INO) | payer MEDICARE, OTHER ==
[~2024-09-28] VITALS: Ht 147.3 cm; Wt 48.8 kg
[2024-09-28] MEDS ORDERED: ASPI81CH33 PO (21:02)
[2024-09-28 21:29] LABS: BASO # 0.1 10^3/uL (0.0-0.2); BASO % 0.5 % (0.0-1.0); EOS # 0.5 10^3/uL (0.0-0.5); EOS % 5.0 % (0.0-3.0); LYMPH # 2.2 10^3/uL (1.5-5.0); LYMPH % 20.4 % (24.0-44.0); MONO # 1.3 10^3/uL (0.0-0.8); MONO % 12.0 % (2.0-8.0); NEUTROPHILS # 6.5 10^3/uL (1.5-8.5); NEUTROPHILS % 61.8 % (36.0-66.0); PLATELET COUNT, AUTOMATED 308 10^3/uL (150-450)
[2024-09-28 22:01] LABS: CK-MB VALUE MASS 4.3 NG/ML (<3.6)
[2024-09-28 22:03] LABS: CALCIUM LEVEL 10.4 MG/DL (8.3-10.6); CARBON DIOXIDE LEVEL 32.0 MMOL/L (20-31); CHLORIDE LEVEL 100.0 MMOL/L (98-107); CREATININE FOR GFR 0.8 MG/DL (0.55-1.30); GLOMERULAR FILTRATION RATE 73.5 (>32); POTASSIUM SERUM 4.2 MMOL/L (3.5-5.1); SODIUM LEVEL 139.0 MMOL/L (136-145)
[2024-09-28 22:13] LABS: CPK CREATINE PHOSPHOKINASE 114.0 U/L (34-145); MB/CK RELATIVE INDEX 3.77 (< OR =4)
[2024-09-28 23:00] LABS: INR 0.93
[2024-09-28 23:12] LABS: ALT/SGPT 55.0 U/L (7.0-40); AST/SGOT 37.0 U/L (<34); CK-MB VALUE MASS 3.7 NG/ML (<3.6)
[2024-09-28 23:24] LABS: CPK CREATINE PHOSPHOKINASE 107.0 U/L (34-145); MB/CK RELATIVE INDEX 3.45 (< OR =4)
[2024-09-29] MEDS ORDERED: CLOP75TA2 PO (00:49)
[2024-09-29 01:28] LABS: CK-MB VALUE MASS 3.5 NG/ML (<3.6)
[2024-09-29 01:31] LABS: CPK CREATINE PHOSPHOKINASE 99.0 U/L (34-145); MB/CK RELATIVE INDEX 3.53 (< OR =4)
[2024-09-29 07:17] LABS: BASO # 0.0 10^3/uL (0.0-0.2); BASO % 0.5 % (0.0-1.0); EOS # 0.5 10^3/uL (0.0-0.5); EOS % 6.1 % (0.0-3.0); LYMPH # 1.6 10^3/uL (1.5-5.0); LYMPH % 20.4 % (24.0-44.0); MONO # 0.9 10^3/uL (0.0-0.8); MONO % 11.4 % (2.0-8.0); NEUTROPHILS # 4.8 10^3/uL (1.5-8.5); NEUTROPHILS % 61.3 % (36.0-66.0); PLATELET COUNT, AUTOMATED 315 10^3/uL (150-450)
[2024-09-29 07:57] LABS: ALT/SGPT 49.0 U/L (7.0-40); AST/SGOT 33.0 U/L (<34); CALCIUM LEVEL 8.9 MG/DL (8.3-10.6); CARBON DIOXIDE LEVEL 29.0 MMOL/L (20-31); CHLORIDE LEVEL 101.0 MMOL/L (98-107); CREATININE FOR GFR 0.77 MG/DL (0.55-1.30); GLOMERULAR FILTRATION RATE 77.0 (>32); MAGNESIUM LEVEL 1.6 MG/DL (1.8-2.4); POTASSIUM SERUM 4.3 MMOL/L (3.5-5.1); SODIUM LEVEL 139.0 MMOL/L (136-145)
[2024-09-29] MEDS ORDERED: SYMBICORT 80/4.5MCG INHALER 6GM INH SCH (08:00)
[2024-09-29] MEDS: ENOXAPARIN 40 MG/0.4 ML SYRINGE (J1650 PER 10MG) SC SCH (09:00)
[2024-09-29] MEDS ORDERED: ATOR80TA59 PO (09:31)
[2024-09-29] MEDS ORDERED: UMEC1BLS INH (09:31)
[2024-09-29] MEDS ORDERED: NITR0.4S14 SL (09:31)
[2024-09-29] MEDS ORDERED: ASPI-615 PO (09:31)
[2024-09-29] MEDS ORDERED: METO1TAB32 PO (09:31)
[2024-09-29] MEDS ORDERED: HOME MED LIST COMPLETE! XX SCH (09:35)
[2024-09-29] MEDS: TIOTROPIUM BROM 2.5MCG/ACTUATION 4GM INH INH SCH (10:02)
[2024-09-29] MEDS: LEVOTHYROXINE 25 MCG TABLET (0.025MG) PO SCH (10:04)
[2024-09-29] MEDS: ASPIRIN 81 MG CHEWABLE TABLET PO SCH (10:04)
[2024-09-29] MEDS: MONTELUKAST 10 MG TAB PO SCH (10:04)
[2024-09-29] MEDS: CLOPIDOGREL 75 MG TAB PO SCH (10:04)
[2024-09-29] MEDS: MAG SULF 1GM/100ML (MAG RUN) 1 GM in IV 1 EA IV SCH (11:15)
[2024-09-29 14:04] VITALS: BP 124/67; TEMP 97; O2SAT 95
== END 2024-09-29 14:09 | disposition home or self-care (01) ==
LOC: M ED 20:54 → M ED INP 20:55
PROVIDERS: ADMIT Student in an Organized Health Care Education/Training Program; ATTEND Student in an Organized Health Care Education/Training Program
DX: R00.1 Bradycardia, unspecified (principal); R53.83 Other fatigue; I21.19 ST elevation (STEMI) myocardial infarction involving other coronary artery of inferior wall; Z95.5 Presence of coronary angioplasty implant and graft; J45.909 Unspecified asthma, uncomplicated; J84.9 Interstitial pulmonary disease, unspecified; R05.3 Chronic cough; Z79.02 Long term (current) use of antithrombotics/antiplatelets; E03.9 Hypothyroidism, unspecified; R79.89 Other specified abnormal findings of blood chemistry; R74.01 Elevation of levels of liver transaminase levels; D72.829 Elevated white blood cell count, unspecified; Z82.49 Family history of ischemic heart disease and other diseases of the circulatory system; Z87.891 Personal history of nicotine dependence; Z79.899 Other long term (current) drug therapy; Z79.82 Long term (current) use of aspirin; Z79.890 Hormone replacement therapy; I25.10 Atherosclerotic heart disease of native coronary artery without angina pectoris
CPT/HCPCS: 36415; 71045; 80048; 80053; 80076; 82550; 82553; 83735; 83880; 84443; 84484; 85025; 85610; 85730; 87486; 87581; 87633; 87798; 93005; 93041; 94640; 94760; 96365; 96376; 99285; G0378; J3475

== ENCOUNTER → 2025-01-12 | Outpatient (REF) | payer MEDICARE, OTHER ==
[~2025-01-12] MED LIST changes: +ASPI-615 PO; +ASPI81CH33 PO; +ATOR80TA59 PO; +CLOP75TA2 PO; +METO1TAB32 PO; +NITR0.4S14 SL; +UMEC1BLS INH
[2025-01-12 18:12] LABS: ALT/SGPT 51.0 U/L (7.0-40); AST/SGOT 43.0 U/L (<34); CALCIUM LEVEL 9.7 MG/DL (8.3-10.6); CARBON DIOXIDE LEVEL 32.0 MMOL/L (20-31); CHLORIDE LEVEL 103.0 MMOL/L (98-107); CHOLESTEROL LEVEL 129.0 MG/DL (<200); CHOLESTEROL RISK RATIO 1.82 (<5); CREATININE FOR GFR 0.89 MG/DL (0.55-1.30); GLOMERULAR FILTRATION RATE 64.7 (>32); LDL CHOLESTEROL 48.3 MG/DL (<100); NON-HDL-C 58.5 MG/DL; POTASSIUM SERUM 4.9 MMOL/L (3.5-5.1); SODIUM LEVEL 142.0 MMOL/L (136-145); TRIGLYCERIDES LEVEL 51.0 MG/DL (<150)
== END ==
LOC: M LABDRWAD 17:36
PROVIDERS: ATTEND Internal Medicine Cardiovascular Disease
DX: I25.10 Atherosclerotic heart disease of native coronary artery without angina pectoris (principal); I25.84 Coronary atherosclerosis due to calcified coronary lesion; I25.5 Ischemic cardiomyopathy; I10 Essential (primary) hypertension; E78.2 Mixed hyperlipidemia

== ENCOUNTER → 2025-02-10 | Outpatient (REF) | payer MEDICARE, OTHER ==
[2025-02-10 15:24] LABS: BASO # 0.0 10^3/uL (0.0-0.2); BASO % 0.5 % (0.0-1.0); EOS # 0.2 10^3/uL (0.0-0.5); EOS % 2.3 % (0.0-3.0); LYMPH # 2.3 10^3/uL (1.5-5.0); LYMPH % 26.9 % (24.0-44.0); MONO # 0.8 10^3/uL (0.0-0.8); MONO % 8.9 % (2.0-8.0); NEUTROPHILS # 5.3 10^3/uL (1.5-8.5); NEUTROPHILS % 61.2 % (36.0-66.0); PLATELET COUNT, AUTOMATED 273 10^3/uL (150-450)
[2025-02-10 15:30] LABS: ALT/SGPT 48.0 U/L (7.0-40); AST/SGOT 41.0 U/L (<34); CALCIUM LEVEL 10.2 MG/DL (8.3-10.6); CARBON DIOXIDE LEVEL 30.0 MMOL/L (20-31); CHLORIDE LEVEL 100.0 MMOL/L (98-107); CREATININE FOR GFR 0.93 MG/DL (0.55-1.30); GLOMERULAR FILTRATION RATE 61.4 (>32); POTASSIUM SERUM 4.3 MMOL/L (3.5-5.1); SODIUM LEVEL 136.0 MMOL/L (136-145)
[2025-02-10 15:32] LABS: FREE T4 1.07 NG/DL (0.89-1.76)
[2025-02-10 15:35] LABS: TOTAL 25(OH) VITAMIN D 42.4 NG/ML (20.0-100.0)
== END ==
LOC: M LABDRWAD 14:45 → M PLALAB 14:45
PROVIDERS: ATTEND Physician Assistant
DX: E03.9 Hypothyroidism, unspecified (principal); E50.9 Vitamin A deficiency, unspecified; E55.9 Vitamin D deficiency, unspecified